=== PATIENT | female | born 1950 | race Caucasian/White ===

== ENCOUNTER → 2017-09-01 | Outpatient (CLI) | payer MEDICARE ==
[2017-09-01 13:17] VITALS: BMI 34.3
== END | disposition home or self-care (01) ==
LOC: MNTWWP 12:50
PROVIDERS: ATTEND Family Medicine
DX: E66.9 Obesity, unspecified (principal); Z68.34 Body mass index [BMI] 34.0-34.9, adult
CPT/HCPCS: 97802

== ENCOUNTER → 2020-12-05 | Outpatient (CLI) | payer MEDICARE ==
[2020-12-05 18:52] LABS: HCT 34.8 % (37.2-46.3); HGB 11.3 g/dL (12.0-15.0); MCH 27.8 pg (27.0-32.0); MCHC 32.5 g/dL (32.0-37.0); MCV 85.7 fL (80.0-97.0); Mean Platelet Volume 10.9 fL (9.5-12.2); Platelet Count 250 X 10*3/uL (140-440); RBC 4.06 X 10*6/uL (4.10-5.20); RDW 14.3 % (11.5-14.5); WBC 5.91 X 10*3/uL (4.50-10.00)
[2020-12-05 20:29] LABS: African American GFR (CKD) 53.8 (60.0-200.0); Albumin 4.4 g/dL (3.8-4.9); Albumin/Globulin Ratio 1.47 (1.60-3.17); Anion Gap 13.6 mmol/L (4.00-12.00); BUN/Creat Ratio 15.25 Ratio (12.00-20.00); Blood Urea Nitrogen 18.3 mg/dL (9.0-27.0); Calcium 9.4 mg/dL (8.7-10.3); Carbon Dioxide 25.4 mmol/L (21.6-31.8); Chol/HDL Ratio 2.5 Ratio; HDL Cholesterol 53.1 mg/dL (40.00-60.00); LDL Cholesterol,Calculated 52.5 mg/dL (0.0-131.0); Non-African American GFR(CKD) 46.4 (60.0-200.0); Total Bilirubin 0.8 mg/dL (0.30-1.20); Total Protein 7.4 g/dL (6.2-8.2); VLDL Calculation 27.4 mg/dL (5.00-40.00)
== END | disposition home or self-care (01) ==
LOC: LABWHC1 11:43
PROVIDERS: ATTEND Internal Medicine Interventional Cardiology
DX: E78.2 Mixed hyperlipidemia (principal)
CPT/HCPCS: 36415; 80053; 80061; 85027

== ENCOUNTER → 2020-12-05 | Outpatient (CLI) | payer MEDICARE | END | disposition home or self-care (01) | LOC: LABPAT 11:38 | PROVIDERS: ATTEND Internal Medicine Interventional Cardiology | DX: Z53.9 Procedure and treatment not carried out, unspecified reason (principal) ==

== ENCOUNTER 2020-12-19 05:56 | Day surgery (SDC) | payer MEDICARE ==
[2020-12-17 09:40] VITALS: BMI 32.8
[~2020-12-19 05:56] MED LIST: ALPRAZolam 0.25 MG TAB PO PRN; ALPRAZolam 0.5 MG TAB PO PRN; ASPIRIN 325 MG TAB PO STA; ATORVASTATIN 80 MG TAB PO STA; HEPARIN SODIUM,PORCINE 10,000 UNIT in SODIUM CHLORIDE 0.9% 1,000 ML IRRIGATION PRN; HEPARIN SODIUM,PORCINE 2,500 UNIT in SODIUM CHLORIDE 0.9% 250 ML IRRIGATION PRN; NITROGLYCERIN SL TABS 0.4 MG TAB SUBLINGUAL PRN; SODIUM CHLORIDE 0.9% 1,000 ML in EMPTY BAG 1 BAG IV SCH
[2020-12-19 06:27] VITALS: RESP 18; TEMP 97.7
[2020-12-19 06:30] LABS: Glucose,Whole Blood 196 mg/dL (75-99)
[2020-12-19] MEDS ORDERED: VERAPAMIL 2.5 MG/ML 2 ML AMP ONE (07:21)
[2020-12-19] MEDS ORDERED: LIDOCAINE 1% INJ 10MG/ML (20 ML MDV) ONE (07:21)
[2020-12-19] MEDS ORDERED: fentaNYL (PF) 50 MCG/ML 2 ML AMP ONE (07:22)
[2020-12-19] MEDS ORDERED: HEPARIN SODIUM 1,000 UN/ML (10ML VL) ONE (07:22)
[2020-12-19] MEDS ORDERED: fentaNYL (PF) 50 MCG/ML 2 ML AMP IVP ONE (07:32)
[2020-12-19] MEDS ORDERED: LIDOCAINE 1% INJ 10MG/ML (20 ML MDV) SQ ONE (07:37)
[2020-12-19] MEDS ORDERED: VERAPAMIL SYRINGE (5 MG/10 ML) INTRAARTER ONE (07:39)
[2020-12-19] MEDS ORDERED: HEPARIN SODIUM 1,000 UN/ML (10ML VL) IVP ONE (07:42)
[2020-12-19] MEDS ORDERED: IOPAMIDOL-370 125ML BTL INJ ONE (07:50)
[2020-12-19] MEDS ORDERED: RX INFO: IV CONTRAST WAS GIVEN 1 EACH MISC MISCELLANE PRN (08:03)
[2020-12-19] MEDS ORDERED: SODIUM CHLORIDE 0.9% 1,000 ML IV SCH (08:15)
[2020-12-19] MEDS ORDERED: amLODIPine 5 MG TAB PO SCH (09:00)
[2020-12-19] MEDS ORDERED: LOSARTAN 50 MG TAB PO SCH (09:00)
[2020-12-19] MEDS ORDERED: ISOSORBIDE MONONITRATE ER 30 MG TAB.ER.24H PO SCH (09:00)
[2020-12-19] MEDS ORDERED: FERROUS SULFATE 325 MG TAB PO SCH (09:00)
[2020-12-19] MEDS ORDERED: ESCITALOPRAM 10 MG TAB PO SCH (09:00)
[2020-12-19] MEDS ORDERED: LEVOTHYROXINE 112 MCG TAB PO SCH (09:00)
--- NOTE | 2020-12-19 09:31 | CC ---
CARDIAC CATHETERIZATION REPORT Mrs Knowles is a 70-year-old female known history of hypertension, hyperlipidemia, and diabetes mellitus as well history of coronary artery disease who had some discomfort in the chest. She had an abnormal myocardial perfusion imaging. In view of that, recommendation was made regarding cardiac catheterization. The procedure as well as the risks and the complications were discussed with the patient who is in full understanding and agreement. PROCEDURE: Patient was brought to the petroleum refinery laborer in a fasting semisedated state after receiving fentanyl and Benadryl and achieving moderate conscious sedated state. Using Xylocaine anesthesia and Seldinger technique, a 6-Romanian sheath was introduced in the right radial artery. Selective right and left coronary angiography performed using 5-Romanian 3.5 bend right and left Judkin's catheter. Multiple views of the coronary artery including hemiaxial views obtained. Following that, a 5-Romanian tight pigtail catheter was introduced into the left ventricle and pressures were calculated. Following that, catheter and sheaths were removed. Hemostasis was obtained with deployment of TR band. There was no immediate complication. Patient was returned to her room in stable condition. Of note, the patient received 5000 units of intravenous heparin as well as intra-arterial verapamil. FINDINGS: FLUOROSCOPY: There was significant calcification involving the LAD and the right coronary artery. CORONARY ANGIOGRAPHY: LEFT MAIN: This is a large-sized vessel bifurcating into left circumflex, left anterior descending artery, left main coronary artery has no evidence of high-grade stenosis. LEFT ANTERIOR DESCENDING CORONARY ARTERY: This is a large-sized vessel reaching to the apex. Tapers down the distal third, giving rise to a large proximal diagonal branch. The left anterior descending artery is heavily calcified proximally. At the takeoff of the diagonal branch, there is a 40-50 percent plaque in the LAD and there is a 50% plaque in the diagonal branch. The rest of the vessel has no high-grade stenosis. LEFT CIRCUMFLEX: Left circumflex is a nondominant vessel, large in caliber giving rise to 2 obtuse marginal branch. The left circumflex and branches have no evidence of obstructive coronary artery disease. RIGHT CORONARY ARTERY : This is a large dominant vessel, calcified, bifurcating distally into PDA and posterolateral segment and branches. The right coronary artery in the proximal segment has a 20% to 30% plaque. The rest of the vessel has no high-grade stenosis. LEFT VENTRICULOGRAM: Left ventriculogram was not performed. HEMODYNAMICS: There was no gradient across the aortic valve. The left ventricular end-diastolic pressure was 10-14 mmHg. CONCLUSION: 1. Calcified coronary arteries. 2. Moderate disease in the proximal LAD and diagonal branch. 3. Mild disease in the RCA proximally. RECOMMENDATION: The images show no progression of disease compared with the images obtained in 2016 and in view of that, I have recommend continue medical therapy with aggressive coronary risk factor modifications that have been initiated. Those findings and recommendations were discussed with the patient and her family and they are in full understanding and agreement. Duration of sedation: 15 minutes. SUNI / RAVINDER: [id number] /
[2020-12-19 12:26] VITALS: BP 142/67; PULSE 68
[2020-12-19] MEDS ORDERED: ATORVASTATIN 40 MG TAB PO SCH (21:00)
[2020-12-20] MEDS ORDERED: GLIMEPIRIDE 1 MG TAB PO SCH (07:30)
[2020-12-20] MEDS ORDERED: ASPIRIN 81 MG PO SCH (09:00)
== END 2020-12-19 12:20 | disposition home or self-care (01) ==
LOC: CATHCVL 05:56
PROVIDERS: ATTEND Internal Medicine Interventional Cardiology
DX: I25.10 Atherosclerotic heart disease of native coronary artery without angina pectoris (principal); I25.84 Coronary atherosclerosis due to calcified coronary lesion; E78.2 Mixed hyperlipidemia; E11.9 Type 2 diabetes mellitus without complications; I10 Essential (primary) hypertension; Z82.49 Family history of ischemic heart disease and other diseases of the circulatory system; Z79.899 Other long term (current) drug therapy; Z79.82 Long term (current) use of aspirin; Z79.4 Long term (current) use of insulin; Z20.822 Contact with and (suspected) exposure to COVID-19
CPT/HCPCS: 93458; 87635; C1894; C1769; J2001; J3010; J1644; Q9967

== ENCOUNTER → 2021-09-12 | Outpatient (CLI) | payer MEDICARE ==
[2021-09-12 11:29] LABS: ALT 46 U/L (8-44); AST 35 U/L (13-35); African American GFR (CKD) 59.3 (60.0-200.0); Albumin 4.5 g/dL (3.8-4.9); Albumin/Globulin Ratio 1.22 (1.60-3.17); Alkaline Phosphatase 75 U/L (41-126); BUN/Creat Ratio 13.45 Ratio (12.00-20.00); Blood Urea Nitrogen 14.8 mg/dL (9.0-27.0); Carbon Dioxide 27.8 mmol/L (20.0-27.5); Chloride 97 mmol/L (96-109); Chol/HDL Ratio 2.44 Ratio; Globulin 3.7 g/dL (1.6-3.3); Glucose 189 mg/dL (70-110); Non-African American GFR(CKD) 51.2 (60.0-200.0); Sodium 136 mmol/L (135-145); Total Protein 8.2 g/dL (6.2-8.2)
== END | disposition home or self-care (01) ==
LOC: LABWHC1 08:05
PROVIDERS: ATTEND Nurse Practitioner Adult Health
DX: I10 Essential (primary) hypertension (principal); E78.2 Mixed hyperlipidemia
CPT/HCPCS: 36415; 80053; 80061

== ENCOUNTER 2022-09-07 15:01 | Inpatient (IN) | payer MEDICARE ==
--- NOTE | 2022-09-07 16:42 | ED ---
General Adult HPI - General Chief complaint: Urogenital Stated complaint: Tremors, Falls Time Seen by Provider: 09/07/22 15:19 Source: patient, family Mode of arrival: wheelchair Limitations: no limitations - History of Present Illness Initial comments: This patient is 72-year-old woman who presents to evaluation of a constellation of symptoms that includes frequency hesitancy and dysuria that has been going on for a couple of days. The patient states she also gets these episodic pains that involve the low abdomen and low back. The pains will come on and be very severe, they are episodic in nature being somewhat brief, resolving but then recurring. Patient has not noted systemic symptoms, no fevers or chills. No chest pain, dyspnea, palpitations. - Related Data Home Medications Medication Instructions Recorded Confirmed Aspirin [Adult Low Dose Aspirin EC] 81 mg PO DAILY 05/27/15 09/07/22 Ferrous Sulfate [Feosol] 325 mg PO SUWE 05/27/15 09/07/22 Levothyroxine Sodium [Synthroid] 112 mcg PO DAILY 05/27/15 09/07/22 Losartan Potassium 50 mg PO DAILY 05/27/15 09/07/22 amLODIPine BESYLATE [Amlodipine 5 mg PO BID 05/27/15 09/07/22 Besylate] metFORMIN HCL 1,000 mg PO BID 05/27/15 09/07/22 Atorvastatin Calcium [Lipitor] 80 mg PO DAILY 09/07/22 09/07/22 Gabapentin 600 mg PO TID 09/07/22 09/07/22 LORazepam [Ativan] 0.5 mg PO DAILY PRN 09/07/22 09/07/22 Magnesium Oxide [Mag-Ox] 400 mg PO DAILY 09/07/22 09/07/22 Nitrofurantoin Monohyd/M-Cryst 100 mg PO BID 09/07/22 09/07/22 [Macrobid] Semaglutide [Rybelsus] 7 mg PO DAILY 09/07/22 09/07/22 Venlafaxine HCl ER [Effexor XR] 37.5 mg PO DAILY 09/07/22 09/07/22 Previous Rx's Medication Instructions Recorded Acetaminophen Tab [Tylenol] 650 mg PO Q6HR PRN tab 09/10/22 Ciprofloxacin HCl [Cipro] 500 mg PO BID 10 Days #20 tab 09/10/22 Famotidine [Pepcid] 20 mg PO DAILY tab 09/10/22 Allergies Allergy/AdvReac Type Severity Reaction Status Date / Time No Known Allergies Allergy Verified 09/07/22 17:51 Review of Systems ROS Statement: Those systems with pertinent positive or pertinent negative responses have been documented in the HPI. ROS Other: All systems not noted in ROS Statement are negative. Constitutional: Denies: fever, chills Respiratory: Denies: cough, dyspnea Cardiovascular: Denies: chest pain, palpitations, edema Gastrointestinal: Reports: as per HPI, abdominal pain. Denies: nausea, vomiting, diarrhea, constipation Genitourinary: Reports: as per HPI, urgency, dysuria, frequency. Denies: hematuria Musculoskeletal: Reports: back pain Skin: Denies: rash Neurological: Reports: as per HPI, confusion. Denies: headache, weakness, numbness Past Medical History Past Medical History: Chest Pain / Angina, Diabetes Mellitus, Hyperlipidemia, Hypertension, Thyroid Disorder Additional Past Medical History / Comment(s): ANEMIA. History of Any Multi-Drug Resistant Organisms: None Reported Past Surgical History: Appendectomy, Hernia Repair, Tubal Ligation Past Anesthesia/Blood Transfusion Reactions: No Reported Reaction Past Psychological History: Depression Smoking Status: Never smoker Past Alcohol Use History: None Reported Past Drug Use History: None Reported - Past Family History Mother Family Medical History: Myocardial Infarction ([place]) Father Family Medical History: Myocardial Infarction ([place]) General Exam Limitations: no limitations General appearance: alert, in no apparent distress Head exam: Present: atraumatic, normocephalic Eye exam: Present: normal appearance. Absent: scleral icterus, conjunctival in jection Neck exam: Present: normal inspection Respiratory exam: Present: normal lung sounds bilaterally. Absent: respiratory distress, wheezes, rales, rhonchi, stridor Cardiovascular Exam: Present: regular rate, normal rhythm, normal heart sounds. Absent: systolic murmur, diastolic murmur, rubs, gallop GI/Abdominal exam: Present: soft. Absent: distended, tenderness, guarding, rebound, rigid, mass Extremities exam: Present: normal inspection, normal capillary refill. Absent: pedal edema, calf tenderness Back exam: Present: normal inspection. Absent: CVA tenderness (R), CVA tenderness (L) Neurological exam: Present: alert, oriented X3, CN II-XII intact. Absent: motor sensory deficit Skin exam: Present: warm, dry, intact, normal color. Absent: rash Course Vital Signs 09/07/22 09/07/22 09/07/22 15:04 16:40 18:00 Temperature 98.7 F 101.3 F H 98.8 F Pulse Rate 97 85 81 Respiratory 18 26 H 24 Rate Blood Pressure 59/56 104/68 119/74 O2 Sat by Pulse 96 97 98 Oximetry 09/07/22 09/07/22 21:32 22:52 Temperature Pulse Rate 70 68 Respiratory 20 20 Rate Blood Pressure 111/96 124/87 O2 Sat by Pulse 97 99 Oximetry - Reevaluation(s) Reevaluation #1: 09/07/22 16:48 The patient's daughter subsequently arrived and provided additional history. The patient reportedly had fallen striking her head and then appeared to be hallucinating. They state that it looked like she was trying to use her phone but she was not holding onto the following, and she hallucinated that she was holding it. Medical Decision Making - Medical Decision Making The patient had chest x-ray which I interpreted as being negative for acute infiltrate, congestive heart failure, pneumothorax. The patient had CT of the brain which I interpreted as being negative for acute bony injury or intracranial hemorrhage This patient is a 72-year-old woman here to have evaluation for urinary symptoms and for hallucination. Patient be admitted to treat urinary tract infection with mental status change. Was pt. sent in by a medical professional or institution ([facility], FAMILY ASSISTANT, urgent care, hospital, or senior living...) When possible be specific @ -[No] Did you speak to anyone other than the patient for history (EMS, parent, family, police, friend...)? What history was obtained from this source @ -[No] Did you review nursing and triage notes (agree or disagree)? Why? @ -[I reviewed and agree with nursing and triage notes] Were old charts reviewed (outside hosp., previous admission, EMS record, old EKG, old radiological studies, urgent care reports/EKG's, senior living records)? Report findings @ -[No old charts were reviewed] Differential Diagnosis (chest pain, altered mental status, abdominal pain women, abdominal pain men, vaginal bleeding, weakness, fever, dyspnea, syncope, headache, dizziness, GI bleed, back pain, seizure, CVA, palpatations, mental health, musculoskeletal)? @ -[Differential Altered Mental Status: Hypoglycemia, DKA, hypercapnia, ETOH, overdose, CO poisoning, trauma, myxedema coma, HTN encephalopathy, infection, encephalitis, psychosis, intercranial hemorrhage, hepatic encephalopathy, meningitis, CVA, this is not meant to be an all-inclusive list EKG interpreted by me (3pts min.). @ -[As above] X-rays interpreted by me (1pt min.). @ -[As above CT interpreted by me (1pt min.). @ -[As above U/S interpreted by me (1pt. min.). @ -[None done] What testing was considered but not performed or refused? (CT, X-rays, U/S, labs)? Why? @ -[None] What meds were considered but not given or refused? Why? @ -[None] Did you discuss the management of the patient with other professionals (professionals i.e. , PA, FAMILY ASSISTANT, lab, RT, psych nurse, director social welfare, payable representative, teacher, custody officer, case management manager)? Give summary @ -[Case discussed with the admitting physician Was smoking cessation discussed for >3mins.? @ -[No] Was critical care preformed (if so, how long)? @ -[No] Were there social determinants of health that impacted care today? How? (Home lessness, low income, unemployed, alcoholism, drug addiction, transportation, low edu. Level, literacy, decrease access to med. care, retirement, rehab)? @ -[No] Was there de-escalation of care discussed even if they declined (Discuss DNR or withdrawal of care, Hospice)? DNR status @ -[No] What co-morbidities impacted this encounter? (DM, HTN, Smoking, COPD, CAD, Cancer, CVA, ARF, Chemo, Hep., AIDS, mental health diagnosis, sleep apnea, morbid obesity)? @ -[None] Was patient admitted / discharged? Hospital course, mention meds given and route, prescriptions, significant lab abnormalities, going to OR and other pertinent info. @ -[Patient is 72-year-old woman here with altered mental status, which did appear to be acute delirium and relation with urinary tract infection, therefore patient admitted start IV antibiotics and pending culture results. Undiagnosed new problem with uncertain prognosis? @ -[No] Drug Therapy requiring intensive monitoring for toxicity (Heparin, Nitro, Insulin, Cardizem)? @ -[No] Were any procedures done? @ -[No] Diagnosis/symptom? @ -[Acute urinary tract infection Acute delirium Acute, or Chronic, or Acute on Chronic? @ -[default] Uncomplicated (without systemic symptoms) or Complicated (systemic symptoms)? @ -[Urinary tract infection complicated by delirium Side effects of treatment? @ -[No] Exacerbation, Progression, or Severe Exacerbation? @ -[No] Poses a threat to life or bodily function? How? (Chest pain, [place], [place], pneumonia, PE, COPD, DKA, ARF, appy, cholecystitis, CVA, Diverticulitis, Homicidal, Suicidal, threat to staff... and all critical care pts) @ -[Yes urinary tract infection with associated delirium associated with chance of progression to sepsis and - Lab Data Result diagrams: 09/10/22 08:22 09/10/22 08:22 Lab Results 09/07/22 09/07/22 09/07/22 Range/Units 16:54 16:54 16:54 WBC 8.6 (3.8-10.6) k/uL RBC 3.68 L (3.80-5.40) m/uL Hgb 10.1 L (11.4-16.0) gm/dL Hct 30.1 L (34.0-46.0) % MCV 81.7 (80.0-100.0) fL MCH 27.5 (25.0-35.0) pg MCHC 33.7 (31.0-37.0) g/dL RDW 15.4 (11.5-15.5) % Plt Count 146 L (150-450) k/uL MPV 8.7 Neutrophils % 91 % Lymphocytes % 4 % Monocytes % 2 % Eosinophils % 1 % Basophils % 0 % Neutrophils # 7.9 H (1.3-7.7) k/uL Lymphocytes # 0.4 L (1.0-4.8) k/uL Monocytes # 0.2 (0-1.0) k/uL Eosinophils # 0.1 (0-0.7) k/uL Basophils # 0.0 (0-0.2) k/uL Sodium 126 L (137-145) mmol/L Potassium 3.5 (3.5-5.1) mmol/L Chloride 93 L (98-107) mmol/L Carbon Dioxide 21 L (22-30) mmol/L Anion Gap 12 mmol/L BUN 23 H (7-17) mg/dL Creatinine 1.35 H (0.52-1.04) mg/dL Est GFR (CKD-EPI)AfAm 46 (>60 ml/min/1.73 sqM) Est GFR (CKD-EPI)NonAf 40 (>60 ml/min/1.73 sqM) Glucose 144 H (74-99) mg/dL Lactic Ac Sepsis Rflx Plasma Lactic Acid Navi 4.3 H* (0.7-2.0) mmol/L Calcium 8.1 L (8.4-10.2) mg/dL Total Bilirubin 2.5 H (0.2-1.3) mg/dL AST 30 (14-36) U/L ALT 26 (4-34) U/L Alkaline Phosphatase 74 (38-126) U/L Total Protein 6.1 L (6.3-8.2) g/dL Albumin 3.1 L (3.5-5.0) g/dL Urine Color Urine Appearance (Clear) Urine pH (5.0-8.0) Ur Specific [place] (1.001-1.035) Urine Protein (Negative) Urine Glucose (UA) (Negative) Urine Ketones (Negative) Urine Blood (Negative) Urine Nitrite (Negative) Urine Bilirubin (Negative) Urine Urobilinogen (<2.0) mg/dL Ur Leukocyte Esterase (Negative) Urine RBC (0-5) /hpf Urine WBC (0-5) /hpf Urine WBC Clumps (None) /hpf Urine Bacteria (None) /hpf Granular Casts (0) /lpf Coronavirus (PCR) (Not Detectd) 09/07/22 09/07/22 09/07/22 Range/Units 16:54 17:37 19:15 WBC (3.8-10.6) k/uL RBC (3.80-5.40) m/uL Hgb (11.4-16.0) gm/dL Hct (34.0-46.0) % MCV (80.0-100.0) fL MCH (25.0-35.0) pg MCHC (31.0-37.0) g/dL RDW (11.5-15.5) % Plt Count (150-450) k/uL MPV Neutrophils % % Lymphocytes % % Monocytes % % Eosinophils % % Basophils % % Neutrophils # (1.3-7.7) k/uL Lymphocytes # (1.0-4.8) k/uL Monocytes # (0-1.0) k/uL Eosinophils # (0-0.7) k/uL Basophils # (0-0.2) k/uL Sodium (137-145) mmol/L Potassium (3.5-5.1) mmol/L Chloride (98-107) mmol/L Carbon Dioxide (22-30) mmol/L Anion Gap mmol/L BUN (7-17) mg/dL Creatinine (0.52-1.04) mg/dL Est GFR (CKD-EPI)AfAm (>60 ml/min/1.73 sqM) Est GFR (CKD-EPI)NonAf (>60 ml/min/1.73 sqM) Glucose (74-99) mg/dL Lactic Ac Sepsis Rflx Y Plasma Lactic Acid Navi (0.7-2.0) mmol/L Calcium (8.4-10.2) mg/dL Total Bilirubin (0.2-1.3) mg/dL AST (14-36) U/L ALT (4-34) U/L Alkaline Phosphatase (38-126) U/L Total Protein (6.3-8.2) g/dL Albumin (3.5-5.0) g/dL Urine Color Light Red Urine Appearance Cloudy H (Clear) Urine pH 5.5 (5.0-8.0) Ur Specific [place] 1.017 (1.001-1.035) Urine Protein 1+ H (Negative) Urine Glucose (UA) Negative (Negative) Urine Ketones 1+ H (Negative) Urine Blood Small H (Negative) Urine Nitrite Negative (Negative) Urine Bilirubin Negative (Negative) Urine Urobilinogen <2.0 (<2.0) mg/dL Ur Leukocyte Esterase Large H (Negative) Urine RBC 10 H (0-5) /hpf Urine WBC 55 H (0-5) /hpf Urine WBC Clumps Few H (None) /hpf Urine Bacteria Moderate H (None) /hpf Granular Casts 3 (0) /lpf Coronavirus (PCR) Not Detected (Not Detectd) 09/07/22 Range/Units 20:35 WBC (3.8-10.6) k/uL RBC (3.80-5.40) m/uL Hgb (11.4-16.0) gm/dL Hct (34.0-46.0) % MCV (80.0-100.0) fL MCH (25.0-35.0) pg MCHC (31.0-37.0) g/dL RDW (11.5-15.5) % Plt Count (150-450) k/uL MPV Neutrophils % % Lymphocytes % % Monocytes % % Eosinophils % % Basophils % % Neutrophils # (1.3-7.7) k/uL Lymphocytes # (1.0-4.8) k/uL Monocytes # (0-1.0) k/uL Eosinophils # (0-0.7) k/uL Basophils # (0-0.2) k/uL Sodium (137-145) mmol/L Potassium (3.5-5.1) mmol/L Chloride (98-107) mmol/L Carbon Dioxide (22-30) mmol/L Anion Gap mmol/L BUN (7-17) mg/dL Creatinine (0.52-1.04) mg/dL Est GFR (CKD-EPI)AfAm (>60 ml/min/1.73 sqM) Est GFR (CKD-EPI)NonAf (>60 ml/min/1.73 sqM) Glucose (74-99) mg/dL Lactic Ac Sepsis Rflx Plasma Lactic Acid Navi 1.8 (0.7-2.0) mmol/L Calcium (8.4-10.2) mg/dL Total Bilirubin (0.2-1.3) mg/dL AST (14-36) U/L ALT (4-34) U/L Alkaline Phosphatase (38-126) U/L Total Protein (6.3-8.2) g/dL Albumin (3.5-5.0) g/dL Urine Color Urine Appearance (Clear) Urine pH (5.0-8.0) Ur Specific [place] (1.001-1.035) Urine Protein (Negative) Urine Glucose (UA) (Negative) Urine Ketones (Negative) Urine Blood (Negative) Urine Nitrite (Negative) Urine Bilirubin (Negative) Urine Urobilinogen (<2.0) mg/dL Ur Leukocyte Esterase (Negative) Urine RBC (0-5) /hpf Urine WBC (0-5) /hpf Urine WBC Clumps (None) /hpf Urine Bacteria (None) /hpf Granular Casts (0) /lpf Coronavirus (PCR) (Not Detectd) - EKG Data -: EKG Interpreted by Me EKG shows normal: sinus rhythm, axis (Normal), intervals (Normal), QRS complexes (Normal) Rate: normal Interpretation: nonspecific ST-T wave changes Disposition Clinical Impression: Urinary tract infection, Acute delirium Disposition: ADMITTED IP TO THIS HOSP Condition: Fair Is patient prescribed a controlled substance at d/c from ED?: No
[2022-09-07] MEDS ORDERED: ACETAMINOPHEN TAB 325 MG TAB PO STA (16:44)
[2022-09-07 17:14] LABS: Basophils % (A) 0 %; Eosinophils # (A) 0.1 k/uL (0-0.7); Eosinophils % (A) 1 %; HCT 30.1 % (34.0-46.0); HGB 10.1 gm/dL (11.4-16.0); Lymphocytes # (A) 0.4 k/uL (1.0-4.8); Lymphocytes % (A) 4 %; MCH 27.5 pg (25.0-35.0); MCHC 33.7 g/dL (31.0-37.0); MCV 81.7 fL (80.0-100.0); Mean Platelet Volume 8.7; Monocytes # (A) 0.2 k/uL (0-1.0); Monocytes % (A) 2 %; Neutrophils # (A) 7.9 k/uL (1.3-7.7); Neutrophils % (A) 91 %; Platelet Count 146 k/uL (150-450); RBC 3.68 m/uL (3.80-5.40); RDW 15.4 % (11.5-15.5); WBC 8.6 k/uL (3.8-10.6)
--- NOTE | 2022-09-07 17:21 | CT ---
EXAMINATION TYPE: CT brain wo con DATE OF EXAM: 09/07/2022 COMPARISON: None HISTORY: weakness, ams CT DLP: [address] of the brain was performed. The ventricles, basal cisterns and sulci overlying the cerebral convexities demonstrate mild enlargem ent. There is no evidence for intracranial hemorrhage or sulcal effacement. There is decreased attenuation about the periventricular white matter and deep white matter of both c erebral hemispheres, compatible with chronic small vessel ischemia. Differential diagnosis does inclu de demyelination. No mass effects are seen.No midline shift. Osseous calvarium is intact. If symptoms persist consider MRI. IMPRESSION: 1. Age related atrophic and chronic small vessel ischemic change without acute intracranial process s een at this time.
[2022-09-07 17:32] LABS: Potassium 3.5 mmol/L (3.5-5.1)
--- NOTE | 2022-09-07 17:32 | XR ---
EXAMINATION TYPE: XR chest 2V DATE OF EXAM: 09/07/2022 COMPARISON: NONE HISTORY: Shortness of breath TECHNIQUE: Frontal and lateral views of the chest are obtained. FINDINGS: Scattered senescent parenchymal changes noted. Hyperinflation compatible with COPD. No evidence for infiltrate. No evidence for atelectasis. Heart size is stable. Mediastinal structures are stable and grossly unremarkable. No evidence for hilar prominence. Degenerative changes dorsal spine. IMPRESSION: 1. No evidence for acute pulmonary disease.
[2022-09-07 17:33] LABS: ALT 26 U/L (4-34); AST 30 U/L (14-36); African American GFR (CKD) 46 (>60 ml/min/1.73 sqM); Albumin 3.1 g/dL (3.5-5.0); Alkaline Phosphatase 74 U/L (38-126); Anion Gap 12 mmol/L; Blood Urea Nitrogen 23 mg/dL (7-17); Calcium 8.1 mg/dL (8.4-10.2); Carbon Dioxide 21 mmol/L (22-30); Chloride 93 mmol/L (98-107); Glucose 144 mg/dL (74-99); Non-African American GFR(CKD) 40 (>60 ml/min/1.73 sqM); Sodium 126 mmol/L (137-145); Total Bilirubin 2.5 mg/dL (0.2-1.3); Total Protein 6.1 g/dL (6.3-8.2)
[2022-09-07 19:49] LABS: Appearance,Urine Cloudy (Clear); Bilirubin,Urine Negative (Negative); Blood,Urine Small (Negative); Color,Urine Light Red; Glucose,Urine (UA) Negative (Negative); Ketones,Urine 1+ (Negative); Leukocyte Esterase,Urine Large (Negative); Nitrite,Urine Negative (Negative); PH, Urine 5.5 (5.0-8.0); Protein,Urine 1+ (Negative); Specific Gravity,Urine 1.017 (1.001-1.035); Urobilinogen,Urine <2.0 mg/dL (<2.0)
[2022-09-07 22:00] LABS: Bacteria,Urine Moderate /hpf; Granular Casts,Urine 3 /lpf (0)
[2022-09-07 22:01] LABS: RBC,Urine 10 /hpf (0-5); WBC,Urine 55 /hpf (0-5)
[2022-09-07] MEDS ORDERED: NALOXONE 0.4 MG/ML 1 ML VIAL IV PRN (22:37)
[2022-09-07] MEDS ORDERED: ONDANSETRON 4 MG/2 ML VIAL IVP PRN (22:37)
[2022-09-07] MEDS ORDERED: MAG HYDROX/AL HYDROX/SIMETH 30 ML CUP PO PRN (22:37)
[2022-09-08] MEDS ORDERED: LORazepam 0.5 MG TAB PO PRN (00:06)
[2022-09-08] MEDS: GABAPENTIN 300 MG CAP PO SCH ×4 (00:29→21:03)
[2022-09-08] MEDS: ACETAMINOPHEN TAB 325 MG TAB PO PRN ×3 (00:32→15:29)
[2022-09-08 05:49] LABS: Glucose,Whole Blood 154 mg/dL (70-110)
[2022-09-08] MEDS: LEVOTHYROXINE 112 MCG TAB PO SCH (06:35)
[2022-09-08] MEDS: INSULIN ASPART (NovoLOG) 100 UNIT/ML VIAL SQ SCH ×4 (06:35→21:03)
[2022-09-08] MEDS ORDERED: FAMOTIDINE 20 MG TAB PO SCH (09:00)
[2022-09-08] MEDS ORDERED: hydroCHLOROthiazide 25 MG TAB PO SCH (09:00)
[2022-09-08] MEDS ORDERED: FERROUS SULFATE 325 MG TAB PO SCH (09:00)
[2022-09-08] MEDS: ASPIRIN 81 MG PO SCH (09:06)
[2022-09-08] MEDS: amLODIPine 5 MG TAB PO SCH ×2 (09:07→21:03)
[2022-09-08] MEDS: ATORVASTATIN 80 MG TAB PO SCH (09:09)
[2022-09-08] MEDS: VENLAFAXINE HCL ER 37.5 MG CAP PO SCH (09:10)
[2022-09-08] MEDS: MAGNESIUM OXIDE 400 MG TAB PO SCH (09:11)
[2022-09-08] MEDS: metFORMIN 500 MG TAB PO SCH ×2 (09:12→21:03)
[2022-09-08] MEDS: LOSARTAN 50 MG TAB PO SCH (09:12)
[2022-09-08] MEDS: NON FORMULARY DRUG (Semaglutide [Rybelsus] 7 MG Tablet) PO SCH (09:15)
[2022-09-08] MEDS ORDERED: DEXTROSE 50% SYRINGE 50 ML IVP PRN ×2 (09:43)
--- NOTE | 2022-09-08 09:49 | P.HPIM ---
History of Present Illness This is a pleasant 72 years old female with past medical history of hypertension, hyperlipidemia, hypothyroidism, diabetes mellitus, depression Presents last night of weakness cloudy urine and increased falls. Patient says that she is having urinary symptoms for the last 5 days, since last Tuesday or Tuesday that she thought she has UTI with some burning and inability to go. Also this morning complaining of from suprapubic tenderness. Also patient was getting periods of shakiness and whole-body without losing consciousness without urine or bowel incontinence or biting tongue, patient also denies seizure-like activity. Yesterday she was going to the bathroom when she fell twice, she doesn't remember exactly what happened but she is not sure if she passed out or no. She remembers she is in the floor and her brought her to the bed. After the second fall her decided to call 911 and presented to the hospital. She states when she fell she hit her head, currently she complains from mild headache which is controlled with Tylenol, and she denies dizziness, no weakness numbness or tingling. No blurred vision or slurred speech. She denies smoking alcohol or illicit drugs. Also she denies chest pain, she visits short of breath but not significant something significant. No coughing. No abdominal pain vomiting or diarrhea. Blood pressure was on the low side on admission 59/56 currently blood pressure i s stable 121/75, patient is afebrile this morning but she has fever over 101.3 on admission Labs showing no leukocytosis, hemoglobin 10.1, sodium 126, creatinine is 1.35. Glucose is 144, lactic acid elevated Hemovac to reference range. Urinalysis is suspicious for infection Liver enzymes are unremarkable, bilirubin is slightly elevated. Carotid S detected. EKG showing sinus arrhythmia with rate of 76 (patient says atrial fibrillation , however there are P waves) no significant ST-T changes. Chest x-ray: No acute process CT of the brain: Age-related atrophic chronic small vessel ischemic changes without acute intracranial process and the report of the radiologist Patient is started on ceftriaxone Review of Systems Review of systems CONSTITUTIONAL: No fever, no malaise, no fatigue. HEENT: No recent visual problems or hearing problems. Denied any sore throat. CARDIOVASCULAR: No orthopnea, PND, no palpitations, no syncope. PULMONARY: No shortness of breath, no cough, no hemoptysis. GASTROINTESTINAL: No diarrhea, no nausea, no vomiting, no abdominal pain. Normoactive bowel sounds. NEUROLOGICAL: No headaches, no weakness, no numbness. HEMATOLOGICAL: Denies any bleeding or petechiae. GENITOURINARY: Denies any burning micturition, frequency, or urgency. MUSCULOSKELETAL/RHEUMATOLOGICAL: Denies any joint pain, swelling, or any muscle pain. ENDOCRINE: Denies any polyuria or polydipsia. Past Medical History Past Medical History: Chest Pain / Angina, Diabetes Mellitus, Hyperlipidemia, Hypertension, Thyroid Disorder Additional Past Medical History / Comment(s): ANEMIA. History of Any Multi-Drug Resistant Organisms: None Reported Past Surgical History: Appendectomy, Hernia Repair, Tubal Ligation Past Anesthesia/Blood Transfusion Reactions: No Reported Reaction Past Psychological History: Depression Smoking Status: Never smoker Past Alcohol Use History: None Reported Past Drug Use History: None Reported - Past Family History Mother Family Medical History: Myocardial Infarction ([place]) Father Family Medical History: Myocardial Infarction ([place]) Medications and Allergies Home Medications Medication Instructions Recorded Confirmed Type Aspirin [Adult Low Dose Aspirin EC] 81 mg PO DAILY 05/27/15 09/07/22 History Ferrous Sulfate [Feosol] 325 mg PO SUWE 05/27/15 09/07/22 History Levothyroxine Sodium [Synthroid] 112 mcg PO DAILY 05/27/15 09/07/22 History Losartan Potassium 50 mg PO DAILY 05/27/15 09/07/22 History amLODIPine BESYLATE [Amlodipine 5 mg PO BID 05/27/15 09/07/22 History Besylate] metFORMIN HCL 1,000 mg PO BID 05/27/15 09/07/22 History hydroCHLOROthiazide 25 mg PO DAILY 12/17/20 09/07/22 History Atorvastatin Calcium [Lipitor] 80 mg PO DAILY 09/07/22 09/07/22 History Gabapentin 600 mg PO TID 09/07/22 09/07/22 History LORazepam [Ativan] 0.5 mg PO DAILY PRN 09/07/22 09/07/22 History Magnesium Oxide [Mag-Ox] 400 mg PO DAILY 09/07/22 09/07/22 History Nitrofurantoin Monohyd/M-Cryst 100 mg PO BID 09/07/22 09/07/22 History [Macrobid] Semaglutide [Rybelsus] 7 mg PO DAILY 09/07/22 09/07/22 History Venlafaxine HCl ER [Effexor Xr] 37.5 mg PO DAILY 09/07/22 09/07/22 History Allergies Allergy/AdvReac Type Severity Reaction Status Date / Time No Known Allergies Allergy Verified 09/07/22 17:51 Physical Exam Vitals: Vital Signs Temp Pulse Pulse Resp BP BP Pulse Ox 09/08/22 07:29 98.1 F 53 L 16 121/75 99 09/08/22 01:40 98.3 F 76 18 142/61 98 09/07/22 22:52 68 20 124/87 99 09/07/22 21:32 70 20 111/96 97 09/07/22 18:00 98.8 F 81 24 119/74 98 09/07/22 16:40 101.3 F H 85 26 H 104/68 97 09/07/22 15:04 98.7 F 97 18 59/56 96 Intake and Output 09/07/22 09/08/22 09/08/22 22:59 06:59 14:59 Other: # Voids 1 Weight 80.286 kg 80.286 kg GENERAL: The patient is alert and oriented x3, not in any acute distress. Well developed, well nourished. HEENT: Pupils are round and equally reacting to light. EOMI. No scleral icterus. No conjunctival pallor. Normocephalic, atraumatic. No pharyngeal erythema. No thyromegaly. CARDIOVASCULAR: S1 and S2 present. No murmurs, rubs, or gallops. PULMONARY: Chest is clear to auscultation, no wheezing , no crackles. -ABDOMEN: Soft, mild suprapubic tenderness, nondistended, normoactive bowel sounds. No palpable organomegaly. No costovertebral angle tenderness MUSCULOSKELETAL: No joint swelling or deformity. EXTREMITIES: No cyanosis, clubbing, or pedal edema. NEUROLOGICAL: Gross neurological examination did not reveal any focal deficits. SKIN: No rashes. no petechiae. Results CBC & Chem 7: 09/07/22 16:54 09/07/22 16:54 Labs: Abnormal Lab Results - Last 24 Hours (Table) 09/07/22 09/07/22 09/07/22 Range/Units 16:54 16:54 16:54 RBC 3.68 L (3.80-5.40) m/uL Hgb 10.1 L (11.4-16.0) gm/dL Hct 30.1 L (34.0-46.0) % Plt Count 146 L (150-450) k/uL Neutrophils # 7.9 H (1.3-7.7) k/uL Lymphocytes # 0.4 L (1.0-4.8) k/uL Sodium 126 L (137-145) mmol/L Chloride 93 L (98-107) mmol/L Carbon Dioxide 21 L (22-30) mmol/L BUN 23 H (7-17) mg/dL Creatinine 1.35 H (0.52-1.04) mg/dL Glucose 144 H (74-99) mg/dL POC Glucose (mg/dL) (70-110) mg/dL Plasma Lactic Acid Navi 4.3 H* (0.7-2.0) mmol/L Calcium 8.1 L (8.4-10.2) mg/dL Total Bilirubin 2.5 H (0.2-1.3) mg/dL Total Protein 6.1 L (6.3-8.2) g/dL Albumin 3.1 L (3.5-5.0) g/dL Urine Appearance (Clear) Urine Protein (Negative) Urine Ketones (Negative) Urine Blood (Negative) Ur Leukocyte Esterase (Negative) Urine RBC (0-5) /hpf Urine WBC (0-5) /hpf Urine WBC Clumps (None) /hpf Urine Bacteria (None) /hpf 09/07/22 09/08/22 Range/Units 19:15 05:44 RBC (3.80-5.40) m/uL Hgb (11.4-16.0) gm/dL Hct (34.0-46.0) % Plt Count (150-450) k/uL Neutrophils # (1.3-7.7) k/uL Lymphocytes # (1.0-4.8) k/uL Sodium (137-145) mmol/L Chloride (98-107) mmol/L Carbon Dioxide (22-30) mmol/L BUN (7-17) mg/dL Creatinine (0.52-1.04) mg/dL Glucose (74-99) mg/dL POC Glucose (mg/dL) 154 H (70-110) mg/dL Plasma Lactic Acid Navi (0.7-2.0) mmol/L Calcium (8.4-10.2) mg/dL Total Bilirubin (0.2-1.3) mg/dL Total Protein (6.3-8.2) g/dL Albumin (3.5-5.0) g/dL Urine Appearance Cloudy H (Clear) Urine Protein 1+ H (Negative) Urine Ketones 1+ H (Negative) Urine Blood Small H (Negative) Ur Leukocyte Esterase Large H (Negative) Urine RBC 10 H (0-5) /hpf Urine WBC 55 H (0-5) /hpf Urine WBC Clumps Few H (None) /hpf Urine Bacteria Moderate H (None) /hpf Thrombosis Risk Factor Assmnt - Choose All That Apply Any of the Below Risk Factors Present?: No Other Risk Factors: Yes Each Risk Factor Represents 2 Points: Age 61-74 years Other congenital or acquired thrombophilia - If yes, enter type in comment: No Thrombosis Risk Factor Assessment Total Risk Factor Score: 2 Thrombosis Risk Factor Assessment Level: Low Risk Assessment and Plan Assessment: -acute urinary tract infection -Hypotension, present on admission. Improved -falls with possible syncope secondary to above, Cardiac causes hold less likely but because with some mild EKG changes we may consider ruling out cardiac cause -acute kidney injury, mild -Hypovolemic hyponatremia -Possible sinus arrhythmia -Diabetes mellitus -Hypertension -Hyperlipidemia -History of osteoarthritis -Hypothyroidism Plan: Continue with ceftriaxone Monitor sodium level Follow-up urine culture Check bladder scan start gentle hydration normal saline 75 mm/h 24 hour Most likely patient has fall secondary to her severe infection and dehydration and hypovolemia. But because of mild EKG changes we will consult cardiology. However I don't believe the EKG shows atrial fibrillation as there are P waves, most likely it's is sinus arrhythmia hold hydrochlorothiazide as patient looks dehydrated area and because of the hyponatremia Continue with insulin sliding scale hold metformin and continue with insulin sliding scale. Check hemoglobin A1c Labs and medication were reviewed.. Continue same treatment. Continue with symptomatic treatment. Resume home medication. Monitor lytes and vitals. DVT and GI prophylaxis. Further recommendations depends on the clinical course of the patient DVT prophylaxis: Subcutaneous heparin GI Prophylaxis: Pepcid PT/OT: Pending Prognosis is guarded
[2022-09-08 10:57] LABS: African American GFR (CKD) 62 (>60 ml/min/1.73 sqM); Anion Gap 12 mmol/L; Blood Urea Nitrogen 24 mg/dL (7-17); Calcium 7.8 mg/dL (8.4-10.2); Carbon Dioxide 21 mmol/L (22-30); Chloride 92 mmol/L (98-107); Glucose 343 mg/dL (74-99); Non-African American GFR(CKD) 54 (>60 ml/min/1.73 sqM); Sodium 125 mmol/L (137-145)
[2022-09-08 10:57] LABS: Glucose,Whole Blood 317 mg/dL (70-110)
[2022-09-08 11:00] LABS: Basophils % (A) 0 %; Eosinophils # (A) 0.1 k/uL (0-0.7); Eosinophils % (A) 1 %; HCT 30.7 % (34.0-46.0); HGB 9.9 gm/dL (11.4-16.0); Hypochromasia Slight; Lymphocytes # (A) 0.7 k/uL (1.0-4.8); Lymphocytes % (A) 8 %; MCHC 32.3 g/dL (31.0-37.0); MCV 83.7 fL (80.0-100.0); Mean Platelet Volume 9.3; Monocytes # (A) 0.4 k/uL (0-1.0); Monocytes % (A) 5 %; Neutrophils # (A) 7.3 k/uL (1.3-7.7); Neutrophils % (A) 84 %; Platelet Count 132 k/uL (150-450); RBC 3.67 m/uL (3.80-5.40); RDW 15.3 % (11.5-15.5); WBC 8.8 k/uL (3.8-10.6)
[2022-09-08 11:17] LABS: Potassium 3.6 mmol/L (3.5-5.1)
[2022-09-08] MEDS: SODIUM CHLORIDE 0.9% 1,000 ML IV SCH ×2 (11:38→21:04)
[2022-09-08 12:54] VITALS: BMI 27.7
--- NOTE | 2022-09-08 12:56 | P.CRDCN ---
History of Present Illness Consult date: 09/08/22 Reason for Consult (text): Possible sinus arrhythmia, possible syncope History of present illness: History of present illness: This is a 72-year-old female patient of Dr. Covington with past medical history of coronary artery disease, diabetes, hypertension, dyslipidemia, family history of premature coronary artery disease. We have been asked to evaluate the patient for possible sinus arrhythmia. Patient states that she has had ongoing problems for weeks of urinary tract infection symptoms that come and go. 2 days ago she developed rigors and fell in the bathroom yesterday. She denies any loss of consciousness. She had some nausea and vomiting following that. She also had some shortness of breath. She was brought into the emergency center found to have a urinary tract infection and started on ceftriaxone with improvement of her symptoms. She is feeling well today. She denies having any chest pain, shortness of breath, palpitations, lightheadedness or dizziness. EKG sinus rhythm with PACs Chest x-ray: WBC 8.8, hemoglobin 9.9, platelet count 132. Sodium 125, potassium 3.6, BUN 24 creatinine 1.05. Blood sugar 343. Urinalysis positive for infection. Chronic virus not detected. Home cardiac medications: Amlodipine 5 mg twice daily, atorvastatin 80 mg daily, hydrochlorothiazide 25 mg daily, levothyroxine 112 g daily, losartan 50 mg daily,, magnesium oxide 400 mg daily, Rybelsus 7 mg daily Cardiac catheterization 2020 revealed 50% mid LAD, 50% diagonal one, 30% proximal RCA, right dominant. Echocardiogram 11/2020 revealed normal EF, mild MR, mild TR MPI 11/2020 normal EF, probable abnormal with partially reversible anterior lateral wall defect. Review Of Systems: At the time of my evaluation: Constitutional: No fever, no chills. No weakness, fatigue or lethargy. EENT: No headache. No dizziness. Lungs: No shortness of breath, cough, no sputum production. No wheezing. Cardiovascular: No chest pain, no lower extremity edema. No palpitations. No paroxysmal nocturnal dyspnea. No orthopnea. No lightheadedness or dizziness. No syncopal episodes. Abdominal: No abdominal pain. No nausea, vomiting. No diarrhea. No constipation. No bloody or tarry stools. Genitourinary: No dysuria.. No urinary retention. Musculoskeletal: No myalgias. No muscle weakness, no frequent falls. No back pain. No neck pain. Integumentary: No wounds. No rash. No unusual bruising. Neurologic: No aphasia. No facial droop. No change in mentation. No head injury. No headache. Physical examination: Gen: This is a 72-year-old female. She is resting in recliner and appears comfortable and in no acute distress VS: reviewed HEENT: Head is atraumatic, normocephalic. Pupils equal, round. Sclerae is anicteric. NECK: Supple. No JVD. . LUNGS: Clear to auscultation. No wheezes or rhonchi. No intercostal retractions. HEART: Regular rate and rhythm. 2/6 systolic ejection murmur. ABDOMEN: Soft No tenderness. EXTREMITIES: No pedal edema. No calf tenderness. NEUROLOGICAL: Patient is awake, alert and oriented x3. Assessment: Sinus rhythm with PACs Urinary tract infection Hyponatremia Thrombocytopenia Coronary artery disease Diabetes Hypertension Dyslipidemia Plan: Continue patient's home cardiac medications No further cardiac workup is needed. Cardiology will sign off. Patient may follow-up in the office with Dr. Castro as scheduled Thank you kindly for this consultation. Nurse practitioner note has been reviewed, I agree with documented findings and plan of care. Patient was seen and examined. Past Medical History Past Medical History: Chest Pain / Angina, Diabetes Mellitus, Hyperlipidemia, Hypertension, Thyroid Disorder Additional Past Medical History / Comment(s): ANEMIA. History of Any Multi-Drug Resistant Organisms: None Reported Past Surgical History: Appendectomy, Hernia Repair, Tubal Ligation Past Anesthesia/Blood Transfusion Reactions: No Reported Reaction Past Psychological History: Depression Smoking Status: Never smoker Past Alcohol Use History: None Reported Past Drug Use History: None Reported - Past Family History Mother Family Medical History: Myocardial Infarction ([place]) Father Family Medical History: Myocardial Infarction ([place]) Medications and Allergies Home Medications Medication Instructions Recorded Confirmed Type Aspirin [Adult Low Dose Aspirin EC] 81 mg PO DAILY 05/27/15 09/07/22 History Ferrous Sulfate [Feosol] 325 mg PO SUWE 05/27/15 09/07/22 History Levothyroxine Sodium [Synthroid] 112 mcg PO DAILY 05/27/15 09/07/22 History Losartan Potassium 50 mg PO DAILY 05/27/15 09/07/22 History amLODIPine BESYLATE [Amlodipine 5 mg PO BID 05/27/15 09/07/22 History Besylate] metFORMIN HCL 1,000 mg PO BID 05/27/15 09/07/22 History hydroCHLOROthiazide 25 mg PO DAILY 12/17/20 09/07/22 History Atorvastatin Calcium [Lipitor] 80 mg PO DAILY 09/07/22 09/07/22 History Gabapentin 600 mg PO TID 09/07/22 09/07/22 History LORazepam [Ativan] 0.5 mg PO DAILY PRN 09/07/22 09/07/22 History Magnesium Oxide [Mag-Ox] 400 mg PO DAILY 09/07/22 09/07/22 History Nitrofurantoin Monohyd/M-Cryst 100 mg PO BID 09/07/22 09/07/22 History [Macrobid] Semaglutide [Rybelsus] 7 mg PO DAILY 09/07/22 09/07/22 History Venlafaxine HCl ER [Effexor Xr] 37.5 mg PO DAILY 09/07/22 09/07/22 History Allergies Allergy/AdvReac Type Severity Reaction Status Date / Time No Known Allergies Allergy Verified 09/07/22 17:51 Physical Exam Vitals: Vital Signs Temp Pulse Pulse Resp BP BP Pulse Ox 09/08/22 07:29 98.1 F 53 L 16 121/75 99 09/08/22 01:40 98.3 F 76 18 142/61 98 09/07/22 22:52 68 20 124/87 99 09/07/22 21:32 70 20 111/96 97 09/07/22 18:00 98.8 F 81 24 119/74 98 09/07/22 16:40 101.3 F H 85 26 H 104/68 97 09/07/22 15:04 98.7 F 97 18 59/56 96 Intake and Output 09/07/22 09/08/22 09/08/22 22:59 06:59 14:59 Other: # Voids 1 Weight 80.286 kg 80.286 kg Results 09/08/22 09:45 09/08/22 09:45 Cardiac Enzymes 09/07/22 Range/Units 16:54 AST 30 (14-36) U/L CBC 09/07/22 09/08/22 Range/Units 16:54 09:45 WBC 8.6 8.8 (3.8-10.6) k/uL RBC 3.68 L 3.67 L (3.80-5.40) m/uL Hgb 10.1 L 9.9 L (11.4-16.0) gm/dL Hct 30.1 L 30.7 L (34.0-46.0) % Plt Count 146 L 132 L (150-450) k/uL Comprehensive Metabolic Panel 09/07/22 09/08/22 Range/Units 16:54 09:45 Sodium 126 L 125 L (137-145) mmol/L Potassium 3.5 3.6 (3.5-5.1) mmol/L Chloride 93 L 92 L (98-107) mmol/L Carbon Dioxide 21 L 21 L (22-30) mmol/L BUN 23 H 24 H (7-17) mg/dL Creatinine 1.35 H 1.05 H (0.52-1.04) mg/dL Glucose 144 H 343 H (74-99) mg/dL Calcium 8.1 L 7.8 L (8.4-10.2) mg/dL AST 30 (14-36) U/L ALT 26 (4-34) U/L Alkaline Phosphatase 74 (38-126) U/L Total Protein 6.1 L (6.3-8.2) g/dL Albumin 3.1 L (3.5-5.0) g/dL Current Medications Generic Name Dose Route Start Last Admin Trade Name Freq PRN Reason Stop Dose Admin Acetaminophen 650 mg 09/08/22 00:06 09/08/22 09:12 Acetaminophen Tab 325 Mg Tab PO 650 mg Q6HR PRN Administration Fever and/ or Pain Al Hydroxide/Mg Hydroxide 15 ml 09/07/22 22:37 Mag Hydrox/Al Hydrox/Simeth 30 Ml Cup PO Q6HR PRN Indigestion Amlodipine Besylate 5 mg 09/08/22 09:00 09/08/22 09:07 Amlodipine 5 Mg Tab PO 5 mg BID MEHNAZ Administration Aspirin 81 mg 09/08/22 09:00 09/08/22 09:06 Aspirin 81 Mg PO 81 mg DAILY MEHNAZ Administration Atorvastatin Calcium 80 mg 09/08/22 09:00 09/08/22 09:09 Atorvastatin 80 Mg Tab PO 80 mg DAILY MEHNAZ Administration Dextrose/Water 25 ml 09/08/22 09:43 Dextrose 50% Syringe 50 Ml IVP PER PROTOCOL PRN Hypoglycemia Protocol Dextrose/Water 50 ml 09/08/22 09:43 Dextrose 50% Syringe 50 Ml IVP PER PROTOCOL PRN Hypoglycemia Protocol Famotidine 20 mg 09/09/22 09:00 Famotidine 20 Mg Tab PO DAILY MEHNAZ Ferrous Sulfate 325 mg 09/08/22 09:00 09/08/22 09:09 Ferrous Sulfate 325 Mg Tab PO 325 mg SUWE MEHNAZ Administration Gabapentin 600 mg 09/08/22 00:15 09/08/22 09:08 Gabapentin 300 Mg Cap PO 600 mg TID MEHNAZ Administration Sodium Chloride 1,000 mls @ 75 mls/hr 09/08/22 10:00 09/08/22 11:38 Saline 0.9% IV 09/09/22 10:01 75 mls/hr .[id number] MEHNAZ Administration Ceftriaxone Sodium 2 gm/ 50 mls @ 100 mls/hr 09/08/22 18:00 Sodium Chloride IVPB Q24H MEHNAZ Insulin Aspart 0 unit 09/08/22 07:30 09/08/22 11:39 Insulin Aspart (Novolog) 100 Unit/Ml Vial SQ 8 unit ACHS MEHNAZ Administration Protocol Levothyroxine Sodium 112 mcg 09/08/22 06:30 09/08/22 06:35 Levothyroxine 112 Mcg Tab PO 112 mcg DAILY@0630 MEHNAZ Administration Lorazepam 0.5 mg 09/08/22 00:06 Lorazepam 0.5 Mg Tab PO DAILY PRN Anxiety Losartan Potassium 50 mg 09/08/22 09:00 09/08/22 09:12 Losartan 50 Mg Tab PO 50 mg DAILY MEHNAZ Administration Magnesium Oxide 400 mg 09/08/22 09:00 09/08/22 09:11 Magnesium Oxide 400 Mg Tab PO 400 mg DAILY MEHNAZ Administration Metformin HCl 1,000 mg 09/08/22 09:00 09/08/22 09:12 Metformin 500 Mg Tab PO 1,000 mg BID MEHNAZ Administration Naloxone HCl 0.2 mg 09/07/22 22:37 Naloxone 0.4 Mg/Ml 1 Ml Vial IV Q2M PRN Opioid Reversal Non-Formulary Medication 7 mg 09/08/22 09:00 09/08/22 09:15 Semaglutide [Rybelsus] PO Not Given DAILY MEHNAZ Ondansetron HCl 4 mg 09/07/22 22:37 Ondansetron 4 Mg/2 Ml Vial IVP Q8HR PRN Nausea And Vomiting Venlafaxine HCl 37.5 mg 09/08/22 09:00 09/08/22 09:10 Venlafaxine Hcl Er 37.5 Mg Cap PO 37.5 mg DAILY MEHNAZ Administration Intake and Output 09/07/22 09/08/22 09/08/22 22:59 06:59 14:59 Other: # Voids 1 Weight 80.286 kg 80.286 kg 09/08/22 09:45 09/08/22 09:45
[2022-09-08 16:07] LABS: Glucose,Whole Blood 111 mg/dL (70-110)
[2022-09-08 20:29] LABS: Glucose,Whole Blood 229 mg/dL (70-110)
--- NOTE | 2022-09-08 22:25 | P.CONS ---
History of Present Illness - Reason for Consult Consult date: 09/08/22 - History of Present Illness Patient is a 72-year-old female with a past medical history significant for hypertension hyperlipidemia diabetes mellitus and thyroid disorder patient presenting to the ER yesterday for evaluation of frequency hesitancy and dysuria that has been going on for few days before presentation to the hospital patient also has some mental status changes associated with it patient denies having any headache or URI symptoms no chest pain shortness of breath or cough no abdominal pain or diarrhea on a presentation to the hospital patient did have a fever of 101.3 F patient was not tachycardic hypotensive or hypoxic, did have a normal white count with a left shift BUN/creatinine has been mildly elevated lactic acid was elevated her urine was positive COVID testing was negative patient did have a CT of the brain that was negative for any bleed chest x-ray negative for acute pulmonary disease patient was started on Rocephin blood cultures pending infectious he was consulted for further management of antibiotic therapy Past Medical History Past Medical History: Chest Pain / Angina, Diabetes Mellitus, Hyperlipidemia, Hypertension, Thyroid Disorder Additional Past Medical History / Comment(s): ANEMIA. History of Any Multi-Drug Resistant Organisms: None Reported Past Surgical History: Appendectomy, Hernia Repair, Tubal Ligation Past Anesthesia/Blood Transfusion Reactions: No Reported Reaction Past Psychological History: Depression Smoking Status: Never smoker Past Alcohol Use History: None Reported Past Drug Use History: None Reported - Past Family History Mother Family Medical History: Myocardial Infarction ([place]) Father Family Medical History: Myocardial Infarction ([place]) Medications and Allergies Home Medications Medication Instructions Recorded Confirmed Type Aspirin [Adult Low Dose Aspirin EC] 81 mg PO DAILY 05/27/15 09/07/22 History Ferrous Sulfate [Feosol] 325 mg PO SUWE 05/27/15 09/07/22 History Levothyroxine Sodium [Synthroid] 112 mcg PO DAILY 05/27/15 09/07/22 History Losartan Potassium 50 mg PO DAILY 05/27/15 09/07/22 History amLODIPine BESYLATE [Amlodipine 5 mg PO BID 05/27/15 09/07/22 History Besylate] metFORMIN HCL 1,000 mg PO BID 05/27/15 09/07/22 History hydroCHLOROthiazide 25 mg PO DAILY 12/17/20 09/07/22 History Atorvastatin Calcium [Lipitor] 80 mg PO DAILY 09/07/22 09/07/22 History Gabapentin 600 mg PO TID 09/07/22 09/07/22 History LORazepam [Ativan] 0.5 mg PO DAILY PRN 09/07/22 09/07/22 History Magnesium Oxide [Mag-Ox] 400 mg PO DAILY 09/07/22 09/07/22 History Nitrofurantoin Monohyd/M-Cryst 100 mg PO BID 09/07/22 09/07/22 History [Macrobid] Semaglutide [Rybelsus] 7 mg PO DAILY 09/07/22 09/07/22 History Venlafaxine HCl ER [Effexor Xr] 37.5 mg PO DAILY 09/07/22 09/07/22 History Allergies Allergy/AdvReac Type Severity Reaction Status Date / Time No Known Allergies Allergy Verified 09/07/22 17:51 Physical Exam Vitals: Vital Signs Temp Pulse Pulse Resp BP BP Pulse Ox 09/08/22 07:29 98.1 F 53 L 16 121/75 99 09/08/22 01:40 98.3 F 76 18 142/61 98 09/07/22 22:52 68 20 124/87 99 09/07/22 21:32 70 20 111/96 97 09/07/22 18:00 98.8 F 81 24 119/74 98 09/07/22 16:40 101.3 F H 85 26 H 104/68 97 09/07/22 15:04 98.7 F 97 18 59/56 96 Intake and Output 09/07/22 09/08/22 09/08/22 22:59 06:59 14:59 Other: # Voids 1 Weight 80.286 kg 80.286 kg Results CBC & Chem 7: 09/08/22 09:45 09/08/22 09:45 Labs: Abnormal Lab Results - Last 24 Hours (Table) 09/07/22 09/07/22 09/07/22 Range/Units 16:54 16:54 16:54 RBC 3.68 L (3.80-5.40) m/uL Hgb 10.1 L (11.4-16.0) gm/dL Hct 30.1 L (34.0-46.0) % Plt Count 146 L (150-450) k/uL Neutrophils # 7.9 H (1.3-7.7) k/uL Lymphocytes # 0.4 L (1.0-4.8) k/uL Sodium 126 L (137-145) mmol/L Chloride 93 L (98-107) mmol/L Carbon Dioxide 21 L (22-30) mmol/L BUN 23 H (7-17) mg/dL Creatinine 1.35 H (0.52-1.04) mg/dL Glucose 144 H (74-99) mg/dL POC Glucose (mg/dL) (70-110) mg/dL Plasma Lactic Acid Navi 4.3 H* (0.7-2.0) mmol/L Calcium 8.1 L (8.4-10.2) mg/dL Total Bilirubin 2.5 H (0.2-1.3) mg/dL Total Protein 6.1 L (6.3-8.2) g/dL Albumin 3.1 L (3.5-5.0) g/dL Urine Appearance (Clear) Urine Protein (Negative) Urine Ketones (Negative) Urine Blood (Negative) Ur Leukocyte Esterase (Negative) Urine RBC (0-5) /hpf Urine WBC (0-5) /hpf Urine WBC Clumps (None) /hpf Urine Bacteria (None) /hpf 09/07/22 09/08/22 09/08/22 Range/Units 19:15 05:44 09:45 RBC 3.67 L (3.80-5.40) m/uL Hgb 9.9 L (11.4-16.0) gm/dL Hct 30.7 L (34.0-46.0) % Plt Count 132 L (150-450) k/uL Neutrophils # (1.3-7.7) k/uL Lymphocytes # 0.7 L (1.0-4.8) k/uL Sodium (137-145) mmol/L Chloride (98-107) mmol/L Carbon Dioxide (22-30) mmol/L BUN (7-17) mg/dL Creatinine (0.52-1.04) mg/dL Glucose (74-99) mg/dL POC Glucose (mg/dL) 154 H (70-110) mg/dL Plasma Lactic Acid Navi (0.7-2.0) mmol/L Calcium (8.4-10.2) mg/dL Total Bilirubin (0.2-1.3) mg/dL Total Protein (6.3-8.2) g/dL Albumin (3.5-5.0) g/dL Urine Appearance Cloudy H (Clear) Urine Protein 1+ H (Negative) Urine Ketones 1+ H (Negative) Urine Blood Small H (Negative) Ur Leukocyte Esterase Large H (Negative) Urine RBC 10 H (0-5) /hpf Urine WBC 55 H (0-5) /hpf Urine WBC Clumps Few H (None) /hpf Urine Bacteria Moderate H (None) /hpf 09/08/22 Range/Units 10:48 RBC (3.80-5.40) m/uL Hgb (11.4-16.0) gm/dL Hct (34.0-46.0) % Plt Count (150-450) k/uL Neutrophils # (1.3-7.7) k/uL Lymphocytes # (1.0-4.8) k/uL Sodium (137-145) mmol/L Chloride (98-107) mmol/L Carbon Dioxide (22-30) mmol/L BUN (7-17) mg/dL Creatinine (0.52-1.04) mg/dL Glucose (74-99) mg/dL POC Glucose (mg/dL) 317 H (70-110) mg/dL Plasma Lactic Acid Navi (0.7-2.0) mmol/L Calcium (8.4-10.2) mg/dL Total Bilirubin (0.2-1.3) mg/dL Total Protein (6.3-8.2) g/dL Albumin (3.5-5.0) g/dL Urine Appearance (Clear) Urine Protein (Negative) Urine Ketones (Negative) Urine Blood (Negative) Ur Leukocyte Esterase (Negative) Urine RBC (0-5) /hpf Urine WBC (0-5) /hpf Urine WBC Clumps (None) /hpf Urine Bacteria (None) /hpf Assessment and Plan Plan: 1-Patient was in the hospital with sepsis in this patient with a fever elevated lactic acid urinary symptoms positive UA likely secondary to the urinary source likely from enteric gram-negative pathogen 2-patient with gram-negative bacteremia source is likely urinary 3-check ultrasound of kidneys and bladder and admission evidence of any obstructive uropathy patient also have mild elevated kidney function 4-check inflammatory markers and repeat blood cultures 5-Rocephin 2 g daily We will follow on clinical condition and cultures to further adjust medication if needed Thank you for this consultation we will follow the patient along with you Dictation was produced using [email or web address] dictation software. please excuse any grammatical, word or spelling errors. Time with Patient: Greater than 30
[2022-09-09] MEDS: ACETAMINOPHEN TAB 325 MG TAB PO PRN ×2 (03:47→21:59)
[2022-09-09 05:47] LABS: Glucose,Whole Blood 117 mg/dL (70-110)
[2022-09-09] MEDS: INSULIN ASPART (NovoLOG) 100 UNIT/ML VIAL SQ SCH ×4 (05:56→21:56)
[2022-09-09] MEDS: LEVOTHYROXINE 112 MCG TAB PO SCH (06:12)
[2022-09-09] MEDS: ATORVASTATIN 80 MG TAB PO SCH (09:18)
[2022-09-09] MEDS: ASPIRIN 81 MG PO SCH (09:18)
[2022-09-09] MEDS: GABAPENTIN 300 MG CAP PO SCH ×3 (09:19→21:56)
[2022-09-09] MEDS: MAGNESIUM OXIDE 400 MG TAB PO SCH (09:19)
[2022-09-09] MEDS: metFORMIN 500 MG TAB PO SCH ×2 (09:19→21:56)
[2022-09-09] MEDS: amLODIPine 5 MG TAB PO SCH ×2 (09:19→21:55)
[2022-09-09] MEDS: LOSARTAN 50 MG TAB PO SCH (09:19)
[2022-09-09] MEDS: FAMOTIDINE 20 MG TAB PO SCH (09:19)
[2022-09-09] MEDS: VENLAFAXINE HCL ER 37.5 MG CAP PO SCH (09:19)
[2022-09-09] MEDS: NON FORMULARY DRUG (Semaglutide [Rybelsus] 7 MG Tablet) PO SCH (09:24)
--- NOTE | 2022-09-09 10:39 | US ---
EXAMINATION TYPE: US kidneys/renal and bladder DATE OF EXAM: 09/09/2022 COMPARISON: NONE CLINICAL INDICATION: Female, 72 years old with history of UTI and bacteremia; EXAM MEASUREMENTS: Right Kidney: 10.3 x 5.1 x 4.2 cm Left Kidney: 11.7 x 5.4 x 4.4 cm Foreign Languages Department Chair notes: Exam done portable Right Kidney: No hydronephrosis or masses seen Left Kidney: 1.3cm cyst superior pole. No hydronephrosis. Bladder: wnl Bilateral Jets seen: yes IMPRESSION: No hydronephrosis. A benign 1.3 cm upper pole cyst on the left.
[2022-09-09 11:24] LABS: Glucose,Whole Blood 152 mg/dL (70-110)
[2022-09-09 14:12] LABS: ALT 25 U/L (8-44); AST 31 U/L (13-35); Albumin 3.1 d/dL (3.8-4.9); Albumin/Globulin Ratio 1.07 Ratio (1.60-3.17); Alkaline Phosphatase 61 U/L (41-126); BUN/Creat Ratio 15.33 Ratio (12.00-20.00); Blood Urea Nitrogen 18.4 mg/dL (9.0-27.0); Calcium 8.5 mg/dL (8.7-10.3); Carbon Dioxide 24.1 mmol/L (21.6-31.8); Chloride 98 mmol/L (96-109); Globulin 2.9 d/dL (1.6-3.3); Glucose 152 mg/dL (70-110); Potassium 3.8 mmol/L (3.5-5.5); Sodium 134 mmol/L (135-145); Total Bilirubin 0.5 mg/dL (0.3-1.2)
[2022-09-09 14:32] LABS: Basophils # (A) 0.01 X 10*3/uL (0.00-0.10); Basophils % (A) 0.2 %; Eosinophils # (A) 0.11 X 10*3/uL (0.04-0.35); Eosinophils % (A) 1.7 %; HCT 29.4 % (37.2-46.3); HGB 9.7 d/dL (12.0-15.0); Lymphocytes # (A) 0.86 X 10*3/uL (0.90-5.00); MCH 26.6 pg (27.0-32.0); MCV 80.8 FL (80.0-97.0); Mean Platelet Volume 11.1 FL (9.5-12.2); Monocytes # (A) 0.82 X 10*3/uL (0.20-1.00); Monocytes % (A) 12.3 %; NRBC Per 100 WBC 0 X 10*3/uL (0.00-0.01); Neutrophils # (A) 4.81 X 10*3/uL (1.80-7.70); Neutrophils % (A) 72.3 %; Platelet Count 174 X 10*3/uL (140-440); RBC 3.64 X 10*6/uL (4.10-5.20); RDW 15.5 % (11.5-14.5); WBC 6.64 X 10*3/uL (4.50-10.00)
[2022-09-09 16:25] LABS: Glucose,Whole Blood 146 mg/dL (70-110)
[2022-09-09 20:23] LABS: Glucose,Whole Blood 173 mg/dL (70-110)
--- NOTE | 2022-09-09 22:09 | PN ---
PROGRESS NOTE DATE OF SERVICE: 09/09/2022 SUBJECTIVE: This is a 72-year-old woman, who was admitted with acute UTI with possible sepsis, gram- negative bacilli grown from the culture. The sensorium is slightly improved. No chest pain. No palpitation. OBJECTIVE: VITAL SIGNS: Pulse is 64, blood pressure 115/62, respirations 16. CHEST: Clear to auscultation. CARDIOVASCULAR: S1, S2. ABDOMEN: Soft. NERVOUS SYSTEM: Nonfocal. LABORATORY DATA: Reviewed. ASSESSMENT: 1. Acute urinary tract infection with possible sepsis with gram-negative bacilli. 2. Acute on chronic kidney disease. 3. Change in mental status, metabolic encephalopathy. 4. Diabetes mellitus, type 2. 5. Multiple medical issues. RECOMMENDATIONS AND DISCUSSION: This is a 72-year-old woman, who presented with multiple complex medical issues, we will monitor the patient closely. We will continue the current management. Continue symptomatic treatment. Continue with broad-spectrum IV antibiotics and repeat cultures. Further recommendations to follow. MMODL / IJN: [id number] /
--- NOTE | 2022-09-09 22:12 | P.PN ---
Subjective Progress Note Date: 09/09/22 Principal diagnosis: Gram-negative urinary tract infection and bacteremia Patient is a 72-year-old female with a past medical history significant for hypertension hyperlipidemia diabetes mellitus and thyroid disorder patient presenting to the ER for evaluation of frequency hesitancy and dysuria that has been going on for few days, patient has been diagnosed with a UTI with a blood cultures subsequently blood cultures came back positive with gram-negative bacilli On today's evaluation that is 09/09/2022, patient denies having any fever or any chills, patient is breathing comfortably on room air no chest pain or shortness of breath or cough no nausea no vomiting no abdominal pain or diarrhea Objective - Vital Signs Vital signs: Vital Signs Temp 98.2 F 09/09/22 07:58 Pulse 60 09/09/22 09:18 Resp 16 09/09/22 09:18 BP 110/62 09/09/22 07:58 Pulse Ox 95 09/09/22 07:58 FiO2 Intake & Output 09/08/22 09/09/22 09/09/22 18:59 06:59 18:59 Weight 80.286 kg Other: Voiding Method Toilet Bedside Commode # Voids 1 1 - Exam GENERAL DESCRIPTION: An elderly female lying in bed in no distress RESPIRATORY SYSTEM: Unlabored breathing , decreased breath sounds at bases HEART: S1 S2 regular rate and rhythm , ABDOMEN: Soft , no tenderness EXTREMITIES: No edema feet - Labs CBC & Chem 7: 09/09/22 08:13 09/09/22 08:13 Labs: Abnormal Lab Results - Last 24 Hours (Table) 09/08/22 09/08/22 09/09/22 Range/Units 16:05 20:24 05:45 POC Glucose (mg/dL) 111 H 229 H 117 H (70-110) mg/dL 09/09/22 Range/Units 11:22 POC Glucose (mg/dL) 152 H (70-110) mg/dL Microbiology - Last 24 Hours (Table) 09/07/22 16:54 Blood Culture Gram Stain - Preliminary Blood Blood Culture - Preliminary Gram Neg Bacilli 09/07/22 19:40 Urine Culture - Final Urine,Clean Catch Assessment and Plan (1) Gram-negative bacteremia Current Visit: Yes Status: Acute Code(s): R78.81 - BACTEREMIA SNOMED Code(s): 633738763399 (2) Urinary tract infection Current Visit: Yes Status: Acute Code(s): N39.0 - URINARY TRACT INFECTION, SITE NOT SPECIFIED SNOMED Code(s): 17396698 Plan: 1-Patient was in the hospital with sepsis in this patient with a fever elevated lactic acid urinary symptoms positive UA likely secondary to the urinary source likely from enteric gram-negative pathogen 2-patient with gram-negative bacteremia source is likely urinary 3- ultrasound of kidneys and bladder did not show any evidence of any obstructive uropathy 4-patient to continue with Rocephin 2 g daily while waiting for the cultures to finalize Dictation was produced using [employer] software. please excuse any grammatical, word or spelling errors.
[2022-09-10 06:12] LABS: Glucose,Whole Blood 133 mg/dL (70-110)
[2022-09-10] MEDS: INSULIN ASPART (NovoLOG) 100 UNIT/ML VIAL SQ SCH ×2 (06:12→12:15)
[2022-09-10] MEDS: LEVOTHYROXINE 112 MCG TAB PO SCH (06:13)
[2022-09-10 07:55] VITALS: RESP 15
[2022-09-10] MEDS: ATORVASTATIN 80 MG TAB PO SCH (09:37)
[2022-09-10] MEDS: amLODIPine 5 MG TAB PO SCH (09:37)
[2022-09-10] MEDS: FAMOTIDINE 20 MG TAB PO SCH (09:37)
[2022-09-10] MEDS: ASPIRIN 81 MG PO SCH (09:37)
[2022-09-10] MEDS: GABAPENTIN 300 MG CAP PO SCH (09:37)
[2022-09-10] MEDS: LOSARTAN 50 MG TAB PO SCH (09:37)
[2022-09-10] MEDS: VENLAFAXINE HCL ER 37.5 MG CAP PO SCH (09:37)
[2022-09-10] MEDS: metFORMIN 500 MG TAB PO SCH (09:37)
[2022-09-10] MEDS: MAGNESIUM OXIDE 400 MG TAB PO SCH (09:37)
[2022-09-10] MEDS: NON FORMULARY DRUG (Semaglutide [Rybelsus] 7 MG Tablet) PO SCH (10:36)
[2022-09-10 11:34] LABS: Glucose,Whole Blood 152 mg/dL (70-110)
[2022-09-10 13:41] LABS: Basophils # (A) 0.02 X 10*3/uL (0.00-0.10); Basophils % (A) 0.3 %; Eosinophils # (A) 0.16 X 10*3/uL (0.04-0.35); Eosinophils % (A) 2.6 %; HCT 30.4 % (37.2-46.3); HGB 9.6 d/dL (12.0-15.0); Lymphocytes % (A) 16.3 %; MCH 25.9 pg (27.0-32.0); MCHC 31.6 d/dL (32.0-37.0); MCV 82.2 FL (80.0-97.0); Monocytes # (A) 0.86 X 10*3/uL (0.20-1.00); NRBC Per 100 WBC 0 X 10*3/uL (0.00-0.01); Neutrophils # (A) 4.05 X 10*3/uL (1.80-7.70); Neutrophils % (A) 66.1 %; Platelet Count 194 X 10*3/uL (140-440); RDW 15.4 % (11.5-14.5); WBC 6.13 X 10*3/uL (4.50-10.00)
[2022-09-10 14:33] VITALS: BP 111/64; PULSE 62; TEMP 98
[2022-09-10 14:56] LABS: Blood Urea Nitrogen 15.6 mg/dL (9.0-27.0); Calcium 8.8 mg/dL (8.7-10.3); Carbon Dioxide 25.3 mmol/L (21.6-31.8); Chloride 101 mmol/L (96-109); Glucose 186 mg/dL (70-110); Sodium 138 mmol/L (135-145)
--- NOTE | 2022-09-10 15:35 | P.PN ---
Subjective Progress Note Date: 09/10/22 Principal diagnosis: Gram-negative urinary tract infection and bacteremia Patient is a 72-year-old female with a past medical history significant for hypertension hyperlipidemia diabetes mellitus and thyroid disorder patient presenting to the ER for evaluation of frequency hesitancy and dysuria that has been going on for few days, patient has been diagnosed with a UTI with a blood cultures subsequently blood cultures came back positive with gram-negative bacilli On today's evaluation that is 09/10/2022, patient remains to be afebrile, patient is breathing comfortably on room air , the patient denies chest pain or shortness of breath or cough no nausea no vomiting no abdominal pain or diarrhea Objective - Vital Signs Vital signs: Vital Signs Temp 98.7 F 09/10/22 07:54 Pulse 64 09/10/22 07:54 Resp 15 09/10/22 07:54 BP 107/61 09/10/22 07:54 Pulse Ox 98 09/10/22 07:54 FiO2 Intake & Output 09/09/22 09/10/22 09/10/22 18:59 06:59 18:59 Intake Total 1000 Balance 1000 Intake: Oral 1000 Other: Voiding Method Toilet Toilet # Voids 4 1 - Exam GENERAL DESCRIPTION: An elderly female lying in bed in no distress RESPIRATORY SYSTEM: Unlabored breathing , decreased breath sounds at bases HEART: S1 S2 regular rate and rhythm , ABDOMEN: Soft , no tenderness EXTREMITIES: No edema feet - Labs CBC & Chem 7: 09/10/22 08:22 09/10/22 08:22 Labs: Abnormal Lab Results - Last 24 Hours (Table) 09/09/22 09/09/22 09/09/22 Range/Units 08:13 08:13 08:13 RBC 3.64 L (4.10-5.20) X 10*6/uL Hgb 9.7 L (12.0-15.0) d/dL Hct 29.4 L (37.2-46.3) % MCH 26.6 L (27.0-32.0) pg RDW 15.5 H (11.5-14.5) % Lymphocytes # 0.86 L (0.90-5.00) X 10*3/uL Sodium 134 L (135-145) mmol/L Est GFR (CKD-EPI) 49 L (>=60) Glucose 152 H (70-110) mg/dL POC Glucose (mg/dL) (70-110) mg/dL Hemoglobin A1c 8.5 H (<=6.0) % Calcium 8.5 L (8.7-10.3) mg/dL C-Reactive Protein 12.30 H (0.00-0.80) mg/dL Total Protein 6.0 L (6.2-8.2) d/dL Albumin 3.1 L (3.8-4.9) d/dL Albumin/Globulin Ratio 1.07 L (1.60-3.17) Ratio 09/09/22 09/09/22 09/10/22 Range/Units 16:23 20:21 06:10 RBC (4.10-5.20) X 10*6/uL Hgb (12.0-15.0) d/dL Hct (37.2-46.3) % MCH (27.0-32.0) pg RDW (11.5-14.5) % Lymphocytes # (0.90-5.00) X 10*3/uL Sodium (135-145) mmol/L Est GFR (CKD-EPI) (>=60) Glucose (70-110) mg/dL POC Glucose (mg/dL) 146 H 173 H 133 H (70-110) mg/dL Hemoglobin A1c (<=6.0) % Calcium (8.7-10.3) mg/dL C-Reactive Protein (0.00-0.80) mg/dL Total Protein (6.2-8.2) d/dL Albumin (3.8-4.9) d/dL Albumin/Globulin Ratio (1.60-3.17) Ratio 09/10/22 Range/Units 11:32 RBC (4.10-5.20) X 10*6/uL Hgb (12.0-15.0) d/dL Hct (37.2-46.3) % MCH (27.0-32.0) pg RDW (11.5-14.5) % Lymphocytes # (0.90-5.00) X 10*3/uL Sodium (135-145) mmol/L Est GFR (CKD-EPI) (>=60) Glucose (70-110) mg/dL POC Glucose (mg/dL) 152 H (70-110) mg/dL Hemoglobin A1c (<=6.0) % Calcium (8.7-10.3) mg/dL C-Reactive Protein (0.00-0.80) mg/dL Total Protein (6.2-8.2) d/dL Albumin (3.8-4.9) d/dL Albumin/Globulin Ratio (1.60-3.17) Ratio Microbiology - Last 24 Hours (Table) 09/07/22 16:54 Blood Culture Gram Stain - Final Blood Blood Culture - Final Escherichia coli 09/09/22 08:13 Blood Culture - Preliminary Blood Assessment and Plan (1) Gram-negative bacteremia Current Visit: Yes Status: Acute Code(s): R78.81 - BACTEREMIA SNOMED Code(s): 570288378744 (2) Urinary tract infection Current Visit: Yes Status: Acute Code(s): N39.0 - URINARY TRACT INFECTION, SITE NOT SPECIFIED SNOMED Code(s): 97851762 Plan: 1-Patient was in the hospital with sepsis in this patient with a fever elevated lactic acid urinary symptoms positive UA likely secondary to the urinary source likely from enteric gram-negative pathogen 2-patient with E. coli bacteremia source is likely urinary 3- ultrasound of kidneys and bladder did not show any evidence of any obstructive uropathy 4-patient has shown clinical improvement on Rocephin will be able to finish therapy with oral Cipro 10 day discussed with APPLICATIONS PROGRAMMER for admitting team working on discharge Dictation was produced using [employer] dictation software. please excuse any grammatical, word or spelling errors. Time with Patient: Less than 30
--- NOTE | 2022-09-10 21:37 | P.DS ---
Providers Date of admission: 09/07/22 22:39 Expected date of discharge: 09/10/22 Attending physician: Marlene Garcia Consults: 09/07/22 22:37 Consult Physician Routine Consulting Provider: Steve Yo Consult Reason/Comments: Urinary Tract infection Do you want consulting provider notified?: Yes 09/08/22 09:44 Consult Physician Routine Consulting Provider: Inez Heda Consult Reason/Comments: possible sinus arrhythmia and possible syncope Do you want consulting provider notified?: Yes [facility] [place] [facility] Course: Final diagnosis Acute urinary tract infection with sepsis, present on admission with E. coli Bacteremia secondary to above Acute on chronic kidney disease Change in mental status with metabolic encephalopathy secondary to urinary tract infection Diabetes mellitus, type II GI prophylaxis DVT prophylaxis Full code Discharge disposition Patient is being discharged in a stable condition with guarded prognosis to [facility]. Patient will follow-up with Dr. Ibarra in the outpatient setting upon discharge. Patient is to continue with oral Cipro 500 mg twice daily for the next 10 days. Total time taken is greater than 35 minutes. Hospital course This is a 72-year-old female who was recently admitted with altered mentation with acute urinary tract infection with sepsis, present on admission. Urine cultures finalized showing E. coli with some bacteremia and was seen and evaluated by infectious disease. Patient will continue on oral Cipro 500 mg twice daily for the next 10 days and close outpatient follow-up. Mentation has improved and would recommend follow-up labs in the next few days as well. Patient instructed to follow-up with primary care provider on discharge. Please refer to other consultation notes for further HPI. Patient reports to feeling well and would like to go home. Currently no reports of chest pain, shortness of breath, or palpitations. Patient is afebrile. No reports of nausea or vomiting and patient is tolerating diet. Patient will be going home today. Physical exam: Gen: This is a 72-year-old female who is awake, alert and oriented 2-3, well- developed, well-nourished HEENT: Head is atraumatic, normocephalic. Pupils equal, round. Sclerae is anicteric. NECK: Supple. No JVD. No lymphadenopathy. No thyromegaly. LUNGS: Clear to auscultation. No wheezes or rhonchi. No intercostal retractions. HEART: Regular rate and rhythm. No murmur. ABDOMEN: Soft. Obese. Bowel sounds are present. No masses. No tenderness. EXTREMITIES: No pedal edema. No calf tenderness. NEUROLOGICAL: Patient is awake, alert and oriented x3. Cranial nerves 2 through 12 are grossly intact. Please refer to medication reconciliation sheet for a list of medications. The impression and plan of care has been dictated by Ni Balderrama, Nurse Practitioner as directed. Dr. Jose MD I have performed a history and examination and MDM of this patient, discussed the same with the dictator, and agree with the dictator's assessment and plan as written ,documented as a scribe. Based on total visit time, I have performed more than 50% of the visit. Patient Condition at Discharge: Fair Plan - Discharge Summary Discharge Rx Participant: No New Discharge Prescriptions: New Acetaminophen Tab [Tylenol] 650 mg PO Q6HR PRN tab PRN Reason: Fever And/ Or Pain Ciprofloxacin HCl [Cipro] 500 mg PO BID 10 Days #20 tab Famotidine [Pepcid] 20 mg PO DAILY tab Continue Levothyroxine Sodium [Synthroid] 112 mcg PO DAILY Losartan Potassium 50 mg PO DAILY metFORMIN HCL 1,000 mg PO BID amLODIPine BESYLATE [Amlodipine Besylate] 5 mg PO BID Ferrous Sulfate [Feosol] 325 mg PO SUWE Aspirin [Adult Low Dose Aspirin EC] 81 mg PO DAILY Gabapentin 600 mg PO TID Semaglutide [Rybelsus] 7 mg PO DAILY Venlafaxine HCl ER [Effexor XR] 37.5 mg PO DAILY LORazepam [Ativan] 0.5 mg PO DAILY PRN PRN Reason: Anxiety Nitrofurantoin Monohyd/M-Cryst [Macrobid] 100 mg PO BID Magnesium Oxide [Mag-Ox] 400 mg PO DAILY Atorvastatin Calcium [Lipitor] 80 mg PO DAILY Discontinued hydroCHLOROthiazide 25 mg PO DAILY Discharge Medication List Aspirin [Adult Low Dose Aspirin EC] 81 mg PO DAILY 05/27/15 [History] Ferrous Sulfate [Feosol] 325 mg PO SUWE 05/27/15 [History] Levothyroxine Sodium [Synthroid] 112 mcg PO DAILY 05/27/15 [History] Losartan Potassium 50 mg PO DAILY 05/27/15 [History] amLODIPine BESYLATE [Amlodipine Besylate] 5 mg PO BID 05/27/15 [History] metFORMIN HCL 1,000 mg PO BID 05/27/15 [History] Atorvastatin Calcium [Lipitor] 80 mg PO DAILY 09/07/22 [History] Gabapentin 600 mg PO TID 09/07/22 [History] LORazepam [Ativan] 0.5 mg PO DAILY PRN 09/07/22 [History] Magnesium Oxide [Mag-Ox] 400 mg PO DAILY 09/07/22 [History] Nitrofurantoin Monohyd/M-Cryst [Macrobid] 100 mg PO BID 09/07/22 [History] Semaglutide [Rybelsus] 7 mg PO DAILY 09/07/22 [History] Venlafaxine HCl ER [Effexor XR] 37.5 mg PO DAILY 09/07/22 [History] Acetaminophen Tab [Tylenol] 650 mg PO Q6HR PRN tab 09/10/22 [Rx] Ciprofloxacin HCl [Cipro] 500 mg PO BID 10 Days #20 tab 09/10/22 [Rx] Famotidine [Pepcid] 20 mg PO DAILY tab 09/10/22 [Rx] Follow up Appointment(s)/Referral(s): Dexter Ibarra DO [Primary Care Provider] - 1-2 days (Office will call you Tuesday for appointment.) Ambulatory/Diagnostic Orders: Complete Blood Count w/diff [LAB.AMB] Time Frame: 3 Days, Location: None Selected Patient Instructions/Handouts: Urinary Tract Infection in Women (DC), Acute Delirium (DC) Activity/Diet/Wound Care/Special Instructions: Activity Limited until follow-up Follow-up with primary care provider this week Continue taking medications as prescribed until finished Continue with antibiotics Recommend follow-up labs in the next 2-3 days Discharge Disposition: HOME SELF-CARE
== END 2022-09-10 15:36 | disposition home or self-care (01) | DRG 871 ==
LOC: EC 15:01 → 4SSUR 22:39
PROVIDERS: ADMIT Hospitalist; ATTEND Hospitalist
DX: A41.51 Sepsis due to Escherichia coli [E. coli] (principal); G93.41 Metabolic encephalopathy; N39.0 Urinary tract infection, site not specified; N17.9 Acute kidney failure, unspecified; E87.1 Hypo-osmolality and hyponatremia; E87.20 Acidosis, unspecified; E03.9 Hypothyroidism, unspecified; G31.89 Other specified degenerative diseases of nervous system; E86.0 Dehydration; I12.9 Hypertensive chronic kidney disease with stage 1 through stage 4 chronic kidney disease, or unspecified chronic kidney disease; Z79.890 Hormone replacement therapy; I08.1 Rheumatic disorders of both mitral and tricuspid valves; N18.9 Chronic kidney disease, unspecified; M19.90 Unspecified osteoarthritis, unspecified site; E86.1 Hypovolemia; I25.10 Atherosclerotic heart disease of native coronary artery without angina pectoris; E78.5 Hyperlipidemia, unspecified; F32.A Depression, unspecified; W19.XXXA Unspecified fall, initial encounter; Z20.822 Contact with and (suspected) exposure to COVID-19; Z98.51 Tubal ligation status; Z87.19 Personal history of other diseases of the digestive system; Z79.84 Long term (current) use of oral hypoglycemic drugs; Z79.899 Other long term (current) drug therapy
CPT/HCPCS: 36415; 70450; 71046; 76770; 80048; 80053; 81001; 83036; 83605; 85025; 86140; 87040; 87077; 87086; 87186; 87635; 93005; 96365; 96375; 99285

== ENCOUNTER → 2022-09-13 | Outpatient (CLI) | payer MEDICARE ==
[2022-09-13 15:43] LABS: Basophils # (A) 0.03 X 10*3/uL (0.00-0.10); Basophils % (A) 0.4 %; Eosinophils # (A) 0.15 X 10*3/uL (0.04-0.35); Eosinophils % (A) 2.2 %; HCT 30.6 % (37.2-46.3); HGB 9.6 d/dL (12.0-15.0); Lymphocytes # (A) 1.47 X 10*3/uL (0.90-5.00); MCHC 31.4 d/dL (32.0-37.0); MCV 82.9 FL (80.0-97.0); Monocytes % (A) 7.5 %; NRBC Per 100 WBC 0.02 X 10*3/uL (0.00-0.01); Neutrophils # (A) 4.33 X 10*3/uL (1.80-7.70); Neutrophils % (A) 64.9 %; Platelet Count 335 X 10*3/uL (140-440); RBC 3.69 X 10*6/uL (4.10-5.20); RDW 15.5 % (11.5-14.5); WBC 6.68 X 10*3/uL (4.50-10.00)
[2022-09-13 15:55] LABS: Blood Urea Nitrogen 9.4 mg/dL (9.0-27.0); Calcium 9.3 mg/dL (8.7-10.3); Carbon Dioxide 25.3 mmol/L (21.6-31.8); Chloride 102 mmol/L (96-109); Glucose 178 mg/dL (70-110); Magnesium 1.6 mg/dL (1.5-2.4); Potassium 4.6 mmol/L (3.5-5.5); Sodium 139 mmol/L (135-145)
[2022-09-14 14:37] LABS: LDL Cholesterol,Calculated 9.6 mg/dL (0.0-131.0)
[2022-09-14 15:03] LABS: ALT 30 U/L (8-44); AST 20 U/L (13-35); Albumin 3.9 d/dL (3.8-4.9); Albumin/Globulin Ratio 1.26 Ratio (1.60-3.17); Alkaline Phosphatase 81 U/L (41-126); BUN/Creat Ratio 10.56 Ratio (12.00-20.00); Blood Urea Nitrogen 9.5 mg/dL (9.0-27.0); Carbon Dioxide 23.4 mmol/L (21.6-31.8); Chloride 103 mmol/L (96-109); Globulin 3.1 d/dL (1.6-3.3); Glucose 184 mg/dL (70-110); Potassium 4.1 mmol/L (3.5-5.5); Sodium 139 mmol/L (135-145); Total Bilirubin 0.4 mg/dL (0.3-1.2)
== END | disposition home or self-care (01) ==
LOC: LABWHC1 11:08
PROVIDERS: ATTEND Registered Nurse
DX: N39.0 Urinary tract infection, site not specified (principal)
CPT/HCPCS: 36415; 80048; 80053; 80061; 83735; 85025

== ENCOUNTER → 2022-09-14 | Outpatient (CLI) | payer MEDICARE | END | disposition home or self-care (01) | LOC: LABWHC1 07:40 | PROVIDERS: ATTEND Internal Medicine Interventional Cardiology | DX: Z53.9 Procedure and treatment not carried out, unspecified reason (principal) ==

== ENCOUNTER → 2023-02-01 | Outpatient (CLI) | payer MEDICARE ==
--- NOTE | 2023-02-04 13:54 | MR ---
EXAMINATION TYPE: MR knee LT wo con DATE OF EXAM: 02/01/2023 COMPARISON: None HISTORY: Left knee pain x 2 mos S/P fall. TECHNIQUE: Multiplanar, multisequence imaging of the left knee is performed without IV contrast. FINDINGS: There is no bone contusion, or fracture. There is a small joint effusion. There is a grade 1 strain of the medial collateral ligament. The lateral collateral ligament is intac t. There is marked degenerative change in the lateral meniscus with probable discrete lateral meniscus t ear tears within the body of the meniscus. There is a tear of the anterior cruciate ligament. The posterior cruciate ligament is intact. There is no significant degenerative arthritis. The patellar tendon and quadriceps tendon are intact. IMPRESSION: 1. ACL tear. 2. Grade 1 strain of the medial collateral ligament. 3. degenerative change and complex tear of the body lateral meniscus. 4. Small joint effusion. 5. No bone contusion or fracture.
== END | disposition home or self-care (01) ==
LOC: RADMRIMAIN 13:16
PROVIDERS: ATTEND Orthopaedic Surgery
DX: S83.282A Other tear of lateral meniscus, current injury, left knee, initial encounter (principal); M17.12 Unilateral primary osteoarthritis, left knee; M25.462 Effusion, left knee

== ENCOUNTER → 2023-05-03 | Outpatient (CLI) | payer MEDICARE ==
[2023-05-03 17:31] LABS: LDL Cholesterol,Calculated 27.3 mg/dL (0.0-131.0)
[2023-05-03 17:32] LABS: ALT 26 U/L (8-44); AST 24 U/L (13-35); Albumin 4.3 g/dL (3.8-4.9); Albumin/Globulin Ratio 1.34 Ratio (1.60-3.17); Alkaline Phosphatase 63 U/L (41-126); BUN/Creat Ratio 11.09 Ratio (12.00-20.00); Blood Urea Nitrogen 12.2 mg/dL (9.0-27.0); Chloride 102 mmol/L (96-109); Globulin 3.2 g/dL (1.6-3.3); Glucose 173 mg/dL (70-110); Potassium 4.7 mmol/L (3.5-5.5); Sodium 138 mmol/L (135-145); Total Protein 7.5 g/dL (6.2-8.2)
== END | disposition home or self-care (01) ==
LOC: LABWHC1 09:38
PROVIDERS: ATTEND Internal Medicine Interventional Cardiology
DX: E78.2 Mixed hyperlipidemia (principal)
CPT/HCPCS: 36415; 80053; 80061

== ENCOUNTER → 2023-10-28 | Outpatient (CLI) | payer MEDICARE ==
[2023-10-28 15:08] LABS: ALT 23 U/L (8-44); AST 18 U/L (13-35); Chol/HDL Ratio 2.32 Ratio; LDL Cholesterol,Calculated 32.6 mg/dL (0.0-131.0)
== END | disposition home or self-care (01) ==
LOC: LABWHC1 09:43
PROVIDERS: ATTEND Internal Medicine Interventional Cardiology
DX: E78.2 Mixed hyperlipidemia (principal)
CPT/HCPCS: 36415; 80061; 84450; 84460

== ENCOUNTER → 2024-04-19 | Outpatient (CLI) | payer MEDICARE ==
[2024-04-19 15:07] LABS: ALT 35 U/L (8-44); AST 25 U/L (13-35); Albumin 4.4 g/dL (3.8-4.9); Albumin/Globulin Ratio 1.33 Ratio (1.60-3.17); Alkaline Phosphatase 62 U/L (41-126); BUN/Creat Ratio 13.55 Ratio (12.00-20.00); Blood Urea Nitrogen 14.9 mg/dL (9.0-27.0); Carbon Dioxide 26.6 mmol/L (21.6-31.8); Chloride 98 mmol/L (96-109); Chol/HDL Ratio 2.32 Ratio; Globulin 3.3 g/dL (1.6-3.3); Glucose 221 mg/dL (70-110); LDL Cholesterol,Calculated 30.5 mg/dL (0.0-131.0); Potassium 4.3 mmol/L (3.5-5.5); Sodium 138 mmol/L (135-145); Total Bilirubin 0.9 mg/dL (0.3-1.2); Total Protein 7.7 g/dL (6.2-8.2)
== END | disposition home or self-care (01) ==
LOC: LABWHC1 09:16
PROVIDERS: ATTEND Internal Medicine Interventional Cardiology
DX: E78.2 Mixed hyperlipidemia (principal)
CPT/HCPCS: 36415; 80053; 80061

== ENCOUNTER → 2024-05-18 | Outpatient (CLI) | payer MEDICARE ==
--- NOTE | 2024-05-18 14:24 | MM ---
Reason for Exam: Screening (asymptomatic). Last mammogram was performed 1 year(s) and 6 month(s) ago. Patient History: Menarche at age 16. First Full-Term at age 26. Postmenopausal. Risk Values: Kelsey 5 year model risk: 1.4%. NCI Lifetime model risk: 3.8%. Prior Study Comparison: 01/20/2011 Screening Mammogram, [facility] . 05/16/2013 Bilateral Screening Mammogram, [facility]. 09/09/2014 Bilateral Screening Mammogram, [facility]. 11/28/2019 Bilateral Screening Mammogram, [facility] . 11/10/2021 Bilateral Screening Mammogram, [facility] . 11/17/2022 Bilateral Screening Mammogram, [facility] . Tissue Density: There are scattered areas of fibroglandular density. Findings: Analyzed By CAD. There is no suspicious group of microcalcifications or new suspicious mass in either breast. Overall Assessment: Negative, BI-RAD 1 Management: Screening Mammogram of both breasts in 1 year. . Patient should continue monthly self-breast exams. A clinical breast exam by your physician is recommended on an annual basis. This exam should not preclude additional follow-up of suspicious palpable abnormalities. Note on Kelsey scores and lifetime risk: 1. A Kelsey score greater than 3% is considered moderate risk. If this is the case, consider specialist referral to assess eligibility for a risk reducing agent. 2. If overall lifetime risk for the development of breast cancer is 20% or higher, the patient may qualify for future screening with alternating mammogram and breast MRI. [facility], , 05/18/2024 2:22 PM. Electronically signed and approved by: Travis Meyers M.D. [facility]iolog[facility]
== END | disposition home or self-care (01) ==
LOC: RADMAMWWP 08:54
PROVIDERS: ATTEND Emergency Medicine
DX: Z12.31 Encounter for screening mammogram for malignant neoplasm of breast (principal); R92.323 Mammographic fibroglandular density, bilateral breasts; Z78.0 Asymptomatic menopausal state
CPT/HCPCS: 77063; 77067